=== PATIENT | male | born 1940 | race Caucasian/White ===

== ENCOUNTER 2017-07-07 22:23 | Inpatient (IN) | payer OTHER ==
--- NOTE | 2017-07-07 22:50 | DR.GENAD ---
HPI - PCP Primary Care Physician: HOMERO - Complaint/Symptoms Chief Complaint Doctors Comments: Patient presents with complaint of cough, congestion and chills for three days. He admits to a history of CAD and DM. Chief Complaint:: COUGHING; FEVER; CHILLS; SINUS DRAINAGE Self Treatment fo Chief Complaint: MUCINEX - Source History Provided: Patient - Mode of Arrival Mode of Arrival: Ambulatory - Timing Onset of Chief Complaint: 07/06/17 PMH - PMH Past Medical History: Yes Past Medical History: Angina, Diabetes, Hypertension, Seizures Past Surgical History: Yes Past Surgical History Comment: BACK SURGERY - Family History History of Family Medical Conditions: No - Social History Does patient currently use any type of tobacco product: No Have you used tobacco products in the last 12 months: No Type of Tobacco Use: None Does any household member use tobacco: No Alcohol Use: None Do you use any recreational Drugs:: No Lives With: Spouse Lives Where: Home - infectious screening In the last 2 months have you had wt loss of >10#?: NO Have you had fever, night sweats or hemotysis?: No Have you traveled outside the country in the last 6 months?: No Isolation: Standard ROS - Review of Systems Eyes: No Symptoms Reported ENTM: No Symptoms Reported Respiratoy: Dry Cough Cardiovascular: No Symptoms Reported Gastrointestinal/Abdominal: No Symptoms Reported Genitourinary: No Symptoms Reported Neurological: No Symptoms Reported Musculoskeletal: Muscle Pain Integumentary: No Symptoms Reported Hematologic/Lymphatic: No Symptoms Reported Endocrine: No Symptoms Reported Psychiatric: No Symptoms Reported All Other Systems: Reviewed and Negative PE - Vital Signs Vitals: Temperature 99.1 F Pulse Rate 102 Respiratory Rate 22 Blood Pressure 188/83 O2 Sat by Pulse Oximetry 98 - General Limitations: No Limitations General Appearance: Alert - Head Head Exam: Atraumatic - Eyes Eye exam: Normal Appearance, PERRL, EOMI - ENT ENT Exam: Normal Exam External Ear Exam: Normal External Inspection TM/Canal Exam: Bilateral Normal Nose Exam: Normal Nose Exam Mouth Exam: Normal Inspection Throat Exam: Normal Inspection - Neck Neck Exam: Normal Inspection, Full ROM - Chest Chest Inspection: Normal Inspection - Respiratory Respiratory Exam: Normal Lung Sounds Bilat Respiratory Exam: Bilateral Clear to Auscultation - Cardiovascular Cardiovascular Exam: Regular Rate - Abdominal Exam Abdominal Exam: Normal Inspection Abdominal Tenderness: negative: RUQ, RLQ, LUQ, LLQ, Epigastrium, Suprapubic, Diffuse, Mild, Moderate, Severe, Other - Extremities Extremities Exam: Normal Inspection - Back Back Exam: Normal Inspection - Neurologic Neurological Exam: Alert, Oriented X3, CN II-XII Intact - Psychiatric Psychiatric Exam: Normal Affect - Skin Skin Exam: Warm, Dry Course - Consultation Called: 01:15 (Dr Villa agreed to admit for further treatment) ROR - Labs Reviewed Result Diagrams: 07/07/17 23:20 07/07/17 23:20 Laboratory: WBC 3.5 X10^3/uL (3.6-10.0) L 07/07/17 23:20 RBC 2.98 X10^6/uL (4.7-6.0) L 07/07/17 23:20 Hgb 6.2 g/dL (13.5-18.0) L* 07/07/17 23:20 Hct 21.3 % (42.0-54.0) L 07/07/17 23:20 MCV 71.4 fL (80.0-100.0) L 07/07/17 23:20 MCH 20.9 pg (27.0-34.0) L 07/07/17 23:20 MCHC 29.3 g/dL (33.0-35.0) L 07/07/17 23:20 RDW 19.5 % (11.6-16.5) H 07/07/17 23:20 Plt Count 157 X10^3/uL (150.0-450.0) 07/07/17 23:20 Plt Count Comment Adequate (ADEQUATE) 07/07/17 23:20 MPV 8.9 fL (7.4-11.0) 07/07/17 23:20 Neut % 44.6 % (42.0-75.0) 07/07/17 23:20 Lymph % 31.9 % (21.0-51.0) 07/07/17 23:20 [place] % 19.6 % (0.0-13.0) H 07/07/17 23:20 Eos % 2.9 % (0.9-2.9) 07/07/17 23:20 Baso % 1.0 % (0.2-1.0) 07/07/17 23:20 Neut # 1.6 x10^3/uL (2.2-4.8) L 07/07/17 23:20 Lymph # 1.1 X10^3/uL (1.3-2.9) L 07/07/17 23:20 [place] # 0.7 x10^3/uL (0.3-0.8) 07/07/17 23:20 Eos # 0.1 x10^3/uL (0.0-0.2) 07/07/17 23:20 Baso # 0.0 X10^3/uL (0.0-0.1) 07/07/17 23:20 Absolute Nucleated RBC 0.1 /100WBC 07/07/17 23:20 Plt Morphology Comment Normal (NORMAL) 07/07/17 23:20 RBC Morphology Abnormal (NORMAL) 07/07/17 23:20 Hypochromasia 2+ A 07/07/17 23:20 Sodium 142 mmol/L (136-145) 07/07/17 23:20 Corrected Sodium 144 mmol/L (136-145) 07/07/17 23:20 Potassium 4.2 mmol/L (3.5-5.1) 07/07/17 23:20 Chloride 105 mmol/L (98-107) 07/07/17 23:20 Carbon Dioxide 24.9 mmol/L (21-32) 07/07/17 23:20 BUN 24 mg/dL (7-18) H 07/07/17 23:20 Creatinine 1.18 mg/dL (0.70-1.30) 07/07/17 23:20 Est GFR (MDRD) Af Amer > 60 (>60) 07/07/17 23:20 Est GFR (MDRD) Non-Af > 60 (>60) 07/07/17 23:20 Glucose 194 mg/dL (65-99) H 07/07/17 23:20 Calcium 8.6 mg/dL (8.5-10.1) 07/07/17 23:20 Corrected Calcium 9.3 mg/dL (8.5-10.1) 07/07/17 23:20 Total Bilirubin 0.40 mg/dL (0.2-1.0) 07/07/17 23:20 AST 70 Units/L (15-37) H 07/07/17 23:20 ALT 37 Units/L (12-78) 07/07/17 23:20 Alkaline Phosphatase 102 Units/L (46-116) 07/07/17 23:20 Total Protein 7.5 g/dL (6.4-8.2) 07/07/17 23:20 Albumin 3.1 g/dL (3.4-5.0) L 07/07/17 23:20 Globulin 4.4 g/dL (2.5-4.5) 07/07/17 23:20 Albumin/Globulin Ratio 0.7 Ratio (1.1-2.1) L 07/07/17 23:20 Influenza Type A (PCR) Negative (NEGATIVE) 07/07/17 23:13 Influenza Type B (PCR) Negative (NEGATIVE) 07/07/17 23:13 - XRAY XRAY Interpreted by: Radiologist (Chest: The heart size is normal. No focal consolidation, effusion or pneumothorax is identified. No acute osseous abnormality is seen.) - Diagnosis Discharge Problem: Anemia Qualifiers: Anemia type: unspecified type Qualified Code(s): D64.9 - Anemia, unspecified - Discharge Plan Condition: Stable - Follow ups/Referrals Follow ups/Referrals: Kalee VALENTIN [Primary Care Provider] - 3 days - Instructions
[2017-07-07 23:38] LABS: EOSINOPHILS # (AUTO) 0.1 x10^3/uL (0.0-0.2); HEMATOCRIT 21.3 % (42.0-54.0); LYMPHOCYTES # (AUTO) 1.1 X10^3/uL (1.3-2.9); MEAN CORPUSCULAR HGB CONC 29.3 g/dL (33.0-35.0); MONOCYTES # (AUTO) 0.7 x10^3/uL (0.3-0.8)
[2017-07-07 23:47] LABS: ALANINE AMINOTRANSFERASE 37 Units/L (12-78); ALBUMIN 3.1 g/dL (3.4-5.0); ALKALINE PHOSPHATASE 102 Units/L (46-116); ASPARTATE AMINO TRANSFERASE 70 Units/L (15-37); BLOOD UREA NITROGEN 24 mg/dL (7-18); CALCIUM 8.6 mg/dL (8.5-10.1); CARBON DIOXIDE 24.9 mmol/L (21-32); CHLORIDE 105 mmol/L (98-107); COR CA(FOR HYPOALB) 9.3 mg/dL (8.5-10.1); COR NA(FOR HYPERGLY) 144 mmol/L (136-145); CREATININE 1.18 mg/dL (0.70-1.30); SODIUM 142 mmol/L (136-145); TOTAL PROTEIN 7.5 g/dL (6.4-8.2); eGFR BLACK RACES > 60 (>60); eGFR NON BLACK RACES > 60 (>60)
[2017-07-07 23:51] LABS: EOSINOPHILS % (AUTO) 2.9 % (0.9-2.9); LYMPHOCYTES % (AUTO) 31.9 % (21.0-51.0); MEAN CORPUSCULAR HEMOGLOBIN 20.9 pg (27.0-34.0); MEAN CORPUSCULAR VOLUME 71.4 fL (80.0-100.0); MEAN PLATELET VOLUME 8.9 fL (7.4-11.0); MONOCYTES % (AUTO) 19.6 % (0.0-13.0); NEUTROPHILS # (AUTO) 1.6 x10^3/uL (2.2-4.8); NEUTROPHILS % (AUTO) 44.6 % (42.0-75.0); PLATELET COUNT 157 X10^3/uL (150.0-450.0); RED BLOOD COUNT 2.98 X10^6/uL (4.7-6.0); RED CELL DISTRIBUTION WIDTH 19.5 % (11.6-16.5); WHITE BLOOD COUNT 3.5 X10^3/uL (3.6-10.0)
[2017-07-07 23:53] LABS: HEMOGLOBIN 6.2 g/dL (13.5-18.0)
[2017-07-08 00:03] LABS: HYPOCHROMASIA 2+; PLATELET MORPHOLOGY COMMENT NORMAL (NORMAL)
--- NOTE | 2017-07-08 01:23 | RAD ---
Chest, one-view Indication: Cough, fever, chills Comparison: 05/19/2014 Findings: The heart size is normal. No focal consolidation, effusion or pneumothorax is identified. N o acute osseous abnormality is seen. Impression: No acute chest process. Reported By:
[2017-07-08] MEDS ORDERED: NS 500 ML IV 500 ML IV ONE (02:09)
[2017-07-08 05:02] VITALS: BMI 34.7
[2017-07-08] MEDS ORDERED: ASTELIN NASAL SPRAY ENOSTRIL ONE (16:13)
[2017-07-08] MEDS: FLONASE NASAL SPRAY ENOSTRIL SCH (16:59)
[2017-07-08] MEDS ORDERED: ASPIRIN PO SCH (17:00)
[2017-07-08] MEDS: AUGMENTIN 500 MG/125 MG TAB PO SCH ×2 (17:00→20:49)
[2017-07-08] MEDS: ASTELIN NASAL SPRAY ENOSTRIL SCH ×2 (17:00→20:45)
[2017-07-08] MEDS ORDERED: ASPIRIN EC 81 MG PO ONE (17:05)
[2017-07-08] MEDS ORDERED: GLUCOPHAGE ONE (17:05)
[2017-07-08] MEDS: GLUCOPHAGE PO SCH (17:06)
[2017-07-08] MEDS: GLUCOTROL PO SCH (17:06)
[2017-07-08] MEDS: ZESTRIL TAB 5 MG PO SCH (17:06)
[2017-07-08] MEDS: ASPIRIN EC 81 MG PO SCH (18:22)
[2017-07-08] MEDS: SNACK - Diabetic Appropriate PO SCH (20:43)
[2017-07-08] MEDS: NEURONTIN CAP 300 MG PO SCH (20:48)
[2017-07-08] MEDS: DILANTIN CAP 100 MG EXT REL PO SCH (20:48)
[2017-07-08] MEDS: PHENOBARBITAL TAB 30 MG (32.4MG) PO SCH (20:49)
[2017-07-09] MEDS: DILANTIN CAP 100 MG EXT REL PO SCH ×5 (01:35→22:24)
[2017-07-09] MEDS: PHENOBARBITAL TAB 30 MG (32.4MG) PO SCH ×4 (01:36→22:24)
[2017-07-09] MEDS ORDERED: GLUCOPHAGE ONE ×2 (05:04→17:35)
[2017-07-09] MEDS: AUGMENTIN 500 MG/125 MG TAB PO SCH ×3 (05:21→20:53)
[2017-07-09 05:52] LABS: BASOPHILS % (AUTO) 1.6 % (0.2-1.0); EOSINOPHILS # (AUTO) 0.1 x10^3/uL (0.0-0.2); EOSINOPHILS % (AUTO) 2.7 % (0.9-2.9); LYMPHOCYTES # (AUTO) 0.7 X10^3/uL (1.3-2.9); LYMPHOCYTES % (AUTO) 24.7 % (21.0-51.0); MEAN CORPUSCULAR HEMOGLOBIN 21.8 pg (27.0-34.0); MEAN CORPUSCULAR HGB CONC 29.9 g/dL (33.0-35.0); MEAN PLATELET VOLUME 9.2 fL (7.4-11.0); MONOCYTES # (AUTO) 0.5 x10^3/uL (0.3-0.8); MONOCYTES % (AUTO) 17.2 % (0.0-13.0); NEUTROPHILS # (AUTO) 1.5 x10^3/uL (2.2-4.8); NEUTROPHILS % (AUTO) 53.8 % (42.0-75.0); PLATELET COUNT 122 X10^3/uL (150.0-450.0); RED BLOOD COUNT 2.75 X10^6/uL (4.7-6.0); WHITE BLOOD COUNT 2.8 X10^3/uL (3.6-10.0)
[2017-07-09 05:57] LABS: ALANINE AMINOTRANSFERASE 27 Units/L (12-78); ALBUMIN 2.8 g/dL (3.4-5.0); ALKALINE PHOSPHATASE 86 Units/L (46-116); ASPARTATE AMINO TRANSFERASE 40 Units/L (15-37); BLOOD UREA NITROGEN 18 mg/dL (7-18); CALCIUM 8.7 mg/dL (8.5-10.1); CHLORIDE 107 mmol/L (98-107); COR CA(FOR HYPOALB) 9.7 mg/dL (8.5-10.1); COR NA(FOR HYPERGLY) 142 mmol/L (136-145); CREATININE 0.86 mg/dL (0.70-1.30); SODIUM 141 mmol/L (136-145); TOTAL PROTEIN 6.9 g/dL (6.4-8.2); eGFR BLACK RACES > 60 (>60); eGFR NON BLACK RACES > 60 (>60)
[2017-07-09] MEDS: GLUCOTROL PO SCH ×2 (06:04→17:48)
[2017-07-09] MEDS: GLUCOPHAGE PO SCH ×2 (06:04→17:48)
[2017-07-09 06:41] LABS: PLATELET MORPHOLOGY COMMENT NORMAL (NORMAL)
[2017-07-09 06:42] LABS: HYPOCHROMASIA 2+; MICROCYTOSIS 2+
[2017-07-09] MEDS: ASTELIN NASAL SPRAY ENOSTRIL SCH ×2 (08:34→20:55)
[2017-07-09] MEDS: FLONASE NASAL SPRAY ENOSTRIL SCH (08:34)
[2017-07-09] MEDS: ZESTRIL TAB 5 MG PO SCH (08:34)
[2017-07-09] MEDS: ASPIRIN EC 81 MG PO SCH (08:34)
[2017-07-09] MEDS ORDERED: ZESTRIL TAB 5 MG PO SCH ×2 (09:12→12:15)
[2017-07-09] MEDS ORDERED: DEXFERRUM or INFED 25 MG in NS 100 ML IV 100 ML IV ONE (10:00)
[2017-07-09] MEDS ORDERED: PHARMACY CONSULT - DOSE _____ XX SCH (10:00)
[2017-07-09] MEDS ORDERED: NS 500 ML IV 500 ML IV ONE ×2 (10:16→21:51)
[2017-07-09] MEDS ORDERED: DEXFERRUM or INFED 1,000 MG in NS 500 ML IV 500 ML IV ONE (11:00)
[2017-07-09] MEDS ORDERED: ZESTRIL TAB 10 MG PO ONE (13:00)
[2017-07-09] MEDS ORDERED: LASIX ONE (17:28)
[2017-07-09] MEDS ORDERED: LASIX IVP ONE (17:30)
[2017-07-09] MEDS: SNACK - Diabetic Appropriate PO SCH (20:07)
[2017-07-09] MEDS: NEURONTIN CAP 300 MG PO SCH (20:52)
[2017-07-10 05:16] LABS: BASOPHILS % (AUTO) 0.9 % (0.2-1.0); EOSINOPHILS # (AUTO) 0.1 x10^3/uL (0.0-0.2); HEMATOCRIT 26.9 % (42.0-54.0); HEMOGLOBIN 8.5 g/dL (13.5-18.0); LYMPHOCYTES # (AUTO) 1.1 X10^3/uL (1.3-2.9); LYMPHOCYTES % (AUTO) 26.1 % (21.0-51.0); MEAN CORPUSCULAR HGB CONC 31.5 g/dL (33.0-35.0); MEAN CORPUSCULAR VOLUME 76.2 fL (80.0-100.0); MEAN PLATELET VOLUME 9.3 fL (7.4-11.0); MONOCYTES # (AUTO) 0.6 x10^3/uL (0.3-0.8); MONOCYTES % (AUTO) 13.9 % (0.0-13.0); NEUTROPHILS # (AUTO) 2.5 x10^3/uL (2.2-4.8); NEUTROPHILS % (AUTO) 57.1 % (42.0-75.0); PLATELET COUNT 128 X10^3/uL (150.0-450.0); RED BLOOD COUNT 3.53 X10^6/uL (4.7-6.0); RED CELL DISTRIBUTION WIDTH 21.1 % (11.6-16.5); WHITE BLOOD COUNT 4.4 X10^3/uL (3.6-10.0)
[2017-07-10] MEDS ORDERED: GLUCOPHAGE ONE (05:20)
[2017-07-10 05:29] LABS: ALKALINE PHOSPHATASE 94 Units/L (46-116); BLOOD UREA NITROGEN 16 mg/dL (7-18); CALCIUM 8.7 mg/dL (8.5-10.1); CARBON DIOXIDE 25.5 mmol/L (21-32); CHLORIDE 107 mmol/L (98-107); COR CA(FOR HYPOALB) 9.5 mg/dL (8.5-10.1); COR NA(FOR HYPERGLY) 142 mmol/L (136-145); CREATININE 0.78 mg/dL (0.70-1.30); SODIUM 141 mmol/L (136-145); TOTAL PROTEIN 7.4 g/dL (6.4-8.2); eGFR BLACK RACES > 60 (>60); eGFR NON BLACK RACES > 60 (>60)
[2017-07-10] MEDS: AUGMENTIN 500 MG/125 MG TAB PO SCH (05:35)
[2017-07-10] MEDS: DILANTIN CAP 100 MG EXT REL PO SCH (05:35)
[2017-07-10 05:38] LABS: PLATELET MORPHOLOGY COMMENT NORMAL (NORMAL)
[2017-07-10 05:39] LABS: ANISOCYTOSIS 1+; HYPOCHROMASIA 2+; MICROCYTOSIS 2+
[2017-07-10] MEDS: PHENOBARBITAL TAB 30 MG (32.4MG) PO SCH (05:49)
[2017-07-10 05:56] LABS: ALANINE AMINOTRANSFERASE 23 Units/L (12-78); ASPARTATE AMINO TRANSFERASE 38 Units/L (15-37)
[2017-07-10] MEDS: GLUCOTROL PO SCH (06:01)
[2017-07-10] MEDS: GLUCOPHAGE PO SCH (06:01)
[2017-07-10] MEDS: ASPIRIN EC 81 MG PO SCH (08:32)
[2017-07-10] MEDS: ASTELIN NASAL SPRAY ENOSTRIL SCH (08:34)
[2017-07-10] MEDS: FLONASE NASAL SPRAY ENOSTRIL SCH (08:35)
[2017-07-10 09:57] VITALS: BP 181/74
== END 2017-07-10 11:40 | disposition home or self-care (01) | DRG 812 ==
LOC: ER 22:43 → MED/SURG 07-08 02:07
PROVIDERS: ADMIT Obstetrics & Gynecology Obstetrics; ATTEND Internal Medicine
PROC: 30233N1 Transfusion of Nonautologous Red Blood Cells into Peripheral Vein, Percutaneous Approach (ICD-10-PCS; principal; 2017-07-09)
PROC: 30233N1 Transfusion of Nonautologous Red Blood Cells into Peripheral Vein, Percutaneous Approach (ICD-10-PCS; 2017-07-09)
DX: D64.89 Other specified anemias (principal); J32.8 Other chronic sinusitis; E11.65 Type 2 diabetes mellitus with hyperglycemia; I10 Essential (primary) hypertension; G40.802 Other epilepsy, not intractable, without status epilepticus; D50.0 Iron deficiency anemia secondary to blood loss (chronic)
CPT/HCPCS: 36415; 36430; 71010; 80053; 82270; 82607; 82670; 82728; 82746; 83540; 84403; 84466; 85025; 86850; 86900; 86901; 86922; 87502; 96365; 99284; A4222; P9016; J1940

== ENCOUNTER 2019-08-20 10:31 | Inpatient (IN) ==
[2019-08-20] MEDS ORDERED: NS 1000 ML 1,000 ML IV ONE (11:08)
[2019-08-20] MEDS ORDERED: THORAZINE INJ 25 MG AMP IM ONE (11:08)
--- NOTE | 2019-08-20 11:11 | DR.GENAD ---
HPI Time Seen Time Seen by Provider: 08/20/19 11:02 PCP Primary Care Physician: FAVIO ESTES HPI Comment HPI Comment: PATIENT IS 79YR OLD MALE IN EMERGENCY ROOM WITH HIS STATING PATIENT HAVE FEVER, ANOREXIA AND GENERALIZED WEAKNESS FOR 4DAYS. PATIENT HAD DBURNING PAIN.IARRHES PAST 4 WEEKS AND IS ON ANTIBIOTICS. DIARRHEA HAS RESOLVED. NO DYSURIA. PATIENT IS HAVING HICCUPS. PATIENT HAVE 4/10 PAIN IN THE THROAT. Complaint/Symptoms Chief Complaint Doctors Comments: GENERALIZED WEAKNESS, POOR APPETITE AND FEVER TIMES 4DAYS. Chief Complaint:: STATES PT. HAS BEEN HAVING A FEVER, WEAKNESS AND DECREASED APPETITE SINCE MONDAY. SHE BELIEVES PT. IS DEHYDRATED. PT. HAS BEEN TO PCP TWICE IN THE PAST 4 WEEKS DUE TO DIARRHEA WHICH HAS NOW SUBSIDED. PT. IS CURRENTLY ON ANTIBIOTICS. Nurses notes reviewed Nurses Notes Review: Yes Source History Provided: Patient Mode of Arrival Mode of Arrival: Ambulatory Timing Onset of Chief Complaint: 08/16/19 Came on: Suddenly Duration Duration: Constant Duration: Days Severity Severity: Moderate Modifying Factors Worsens:: EXERTION. Improves:: REST. Associated Signs and Symptoms Associated Signs and Symptoms: RESOLVED DIARRHEA. Other History Other History: HISTORY HTN AND DM. PMH PMH Past Medical History: Yes Past Medical History: Angina, Diabetes, Hypertension and Seizures Past Surgical History: Yes Surgical History: Ortho Surgery Family History History of Family Medical Conditions: Yes Family Medical History: Cancer Social History Does patient currently use any type of tobacco product: No Have you used tobacco products in the last 12 months: No Type of Tobacco Use: None Does any household member use tobacco: No Alcohol Use: None Do you use any recreational Drugs:: No Lives With: Spouse Lives Where: Home infectious screening In the last 2 months have you had wt loss of >10#?: NO Have you had fever, night sweats or hemotysis?: No Have you traveled outside the country in the last 6 months?: No Isolation: Standard ROS Review of Systems Constitutional: See HPI, Fever, Weakness and Fatigue Eyes: No Symptoms Reported and See HPI ENTM: No Symptoms Reported and See HPI Respiratoy: See HPI and Other Cardiovascular: No Symptoms Reported and See HPI Gastrointestinal/Abdominal: Diarrhea and Other (RESOLVED, ON ANTIBIOTIC.) Genitourinary: No Symptoms Reported and See HPI; negative Dysuria, Frequency and Hematuria Neurological: See HPI and Weakness Musculoskeletal: See HPI and Muscle Pain Integumentary: See HPI and Dryness Hematologic/Lymphatic: No Symptoms Reported and See HPI; negative Easy Bruising and Swollen Glands Endocrine: See HPI, Increased Thirst and Decreased Appetite; negative Increased Urine Psychiatric: No Symptoms Reported and See HPI All Other Systems: Reviewed and Negative PE Vital Signs Vitals: Temperature 98.7 F Pulse Rate [Left Brachial] 96 Pulse Rate 90 Respiratory Rate 18 Blood Pressure [Left Arm] 167/71 Blood Pressure 176/80 O2 Sat by Pulse Oximetry 95 General Limitations: No Limitations General Appearance: Alert and In No Apparent Distress Head Head Exam: Normal Inspection and Atraumatic Eyes Eye exam: Normal Appearance and PERRL; negative Scleral Icterus and Conjunctival Injection ENT ENT Exam: Normal Exam, Normal Oropharynx, Normal External Ear Exam and TM's Normal Bilaterally External Ear Exam: Normal External Inspection; negative Mastoid Tenderness TM/Canal Exam: Bilateral: Normal Nose Exam: Normal Nose Exam Mouth Exam: Normal Inspection Throat Exam: Tonsillar Erythema; negative Tonsillomegaly and Tonsillar Exudate Neck Neck Exam: Normal Inspection and Trachea Midline; negative Tenderness and Lymph adenopathy Chest Chest Inspection: Normal Inspection and Symmetric Chest Wall Rise; negative Tenderness Respiratory Respiratory Exam: Normal Lung Sounds Bilat; negative Accessory Muscle Use, Chest Wall Tenderness and Respiratory Distress Respiratory Exam: Bilateral: Clear to Auscultation Cardiovascular Cardiovascular Exam: Regular Rate, Normal Rhythm and Normal Heart Sounds; negative Systolic Murmur and Diastolic Murmur Abdominal Exam Abdominal Exam: Normal Inspection, Normal Bowel Sounds and Soft; negative Tenderness Extremities Extremities Exam: Normal Inspection and Normal Capillary Refill; negative Tenderness, Edema and Calf Tenderness Back Back Exam: Normal Inspection; negative Tenderness, (R) CVA Tenderness, (L) CVA Tenderness, Paraspinal Tenderness and Vertebral Tenderness Neurologic Neurological Exam: Alert, Oriented X3 and CN II-XII Intact; negative Motor Sensory Deficit Psychiatric Psychiatric Exam: Normal Affect and Normal Mood Skin Skin Exam: Dry MDM Additional Information Additional Information Obtained From: Family Differential Diagnosis Differential Diagnosis: DEHYDRATION, GENERALIZED WEAKNESS, PNEUMONIA, BRONCHITIS, DIARRHEAM, HICCUP COURSE Treatment Treatment: SEE ORDERS. NS 1L IV. Consultation Consultation Comments: PATIENT DISCUSSED WITH DR. OLMSTEAD AND HE WILL ADMIT PATIENT. Education/Counseling Education/Counseling: Patient and Family Educated On: Diagnosis ROR Labs Reviewed Laboratory Results Reviewed?: Yes Result Diagrams: 08/28/19 06:45 08/28/19 06:45 Laboratory: 08/20/19 11:45 Blood Blood Culture - Final 08/20/19 11:25 Blood Blood Culture - Final WBC 6.6 X10^3/uL (3.6-10.0) 08/20/19 11:45 RBC 4.02 X10^6/uL (4.7-6.0) L 08/20/19 11:45 Hgb 13.1 g/dL (13.5-18.0) L 08/20/19 11:45 Hct 38.7 % (42.0-54.0) L 08/20/19 11:45 MCV 96.2 fL (80.0-100.0) 08/20/19 11:45 MCH 32.6 pg (27.0-34.0) 08/20/19 11:45 MCHC 33.9 g/dL (33.0-35.0) 08/20/19 11:45 RDW 12.7 % (11.6-16.5) 08/20/19 11:45 Plt Count 128 X10^3/uL (150.0-450.0) L 08/20/19 11:45 MPV 9.5 fL (7.4-11.0) 08/20/19 11:45 Neut % (Auto) 79.1 % (42.0-75.0) H 08/20/19 11:45 Lymph % (Auto) 11.3 % (21.0-51.0) L 08/20/19 11:45 [place] % (Auto) 8.9 % (0.0-13.0) 08/20/19 11:45 Eos % (Auto) 0.1 % (0.9-2.9) L 08/20/19 11:45 Baso % (Auto) 0.6 % (0.2-1.0) 08/20/19 11:45 Neut # (Auto) 5.2 x10^3/uL (2.2-4.8) H 08/20/19 11:45 Lymph # (Auto) 0.7 X10^3/uL (1.3-2.9) L 08/20/19 11:45 [place] # (Auto) 0.6 x10^3/uL (0.3-0.8) 08/20/19 11:45 Eos # (Auto) 0.0 x10^3/uL (0.0-0.2) 08/20/19 11:45 Baso # (Auto) 0.0 X10^3/uL (0.0-0.1) 08/20/19 11:45 Absolute Nucleated RBC 0.0 /100WBC 08/20/19 11:45 Sodium 131 mmol/L (136-145) L 08/20/19 11:45 Corrected Sodium 137 mmol/L (136-145) 08/20/19 11:45 Potassium 4.5 mmol/L (3.5-5.1) 08/20/19 11:45 Chloride 94 mmol/L (98-107) L 08/20/19 11:45 Carbon Dioxide 26.0 mmol/L (21-32) 08/20/19 11:45 BUN 30 mg/dL (7-18) H 08/20/19 11:45 Creatinine 1.71 mg/dL (0.70-1.30) H 08/20/19 11:45 Est GFR (MDRD) Af Amer 50 (>60) L 08/20/19 11:45 Est GFR (MDRD) Non-Af 41 (>60) L 08/20/19 11:45 Glucose 347 mg/dL (65-99) H 08/20/19 11:45 Lactic Acid 4.2 mmol/L (0.4-2.0) H 08/20/19 11:45 Calcium 8.1 mg/dL (8.5-10.1) L 08/20/19 11:45 Corrected Calcium 8.7 mg/dL (8.5-10.1) 08/20/19 11:45 Total Bilirubin 0.60 mg/dL (0.2-1.0) 08/20/19 11:45 AST 41 Units/L (15-37) H 08/20/19 11:45 ALT 38 Units/L (12-78) 08/20/19 11:45 Alkaline Phosphatase 110 Units/L (46-116) 08/20/19 11:45 Total Protein 8.1 g/dL (6.4-8.2) 08/20/19 11:45 Albumin 3.2 g/dL (3.4-5.0) L 08/20/19 11:45 Globulin 4.9 g/dL (2.5-4.5) H 08/20/19 11:45 Albumin/Globulin Ratio 0.7 Ratio (1.1-2.1) L 08/20/19 11:45 Specimen Type Random urine 08/20/19 12:34 Urine Color Yellow (YELLOW) 08/20/19 12:34 Urine Appearance Hazy (CLEAR) 08/20/19 12:34 Urine pH 5.0 (5.0 - 8.0) 08/20/19 12:34 Ur Specific [place] 1.010 (1.000-1.030) 08/20/19 12:34 Urine Protein 2+ (NEGATIVE) 08/20/19 12:34 Urine Glucose (UA) 4+ (NEGATIVE) 08/20/19 12:34 Urine Ketones Negative (NEGATIVE) 08/20/19 12:34 Urine Occult Blood 3+ (NEGATIVE) 08/20/19 12:34 Urine Nitrite Negative (NEGATIVE) 08/20/19 12:34 Urine Bilirubin Negative (NEGATIVE) 08/20/19 12:34 Urine Urobilinogen 1+ (NORMAL) 08/20/19 12:34 Ur Leukocyte Esterase Negative (NEGATIVE) 08/20/19 12:34 Urine RBC 0-2 /HPF (0-3) 08/20/19 12:34 Urine WBC None seen /HPF (0-5) 08/20/19 12:34 Ur Squamous Epith Cells Negative /HPF (NEGATIVE) 08/20/19 12:34 Urine Bacteria Negative /HPF (NEGATIVE) 08/20/19 12:34 Urine Mucus Few /HPF (NEGATIVE) 08/20/19 12:34 Ur Culture Indicated? No/not indicated 08/20/19 12:34 Acetone, Semi-Quant Negative (NEGATIVE) 08/20/19 11:45 Influenza Type A (PCR) Negative (NEGATIVE) 08/20/19 10:52 Influenza Type B (PCR) Negative (NEGATIVE) 08/20/19 10:52 S. pyogenes (TEM-PCR) Not detected (NOT DETECT) 08/20/19 10:52 XRAY XRAY Interpreted by: Radiologist XRAY Findings: REPORT NOTED AND DISCUSSED WITH PATIENT. Opioid Opioid Risk Tool Age (Juan Alberto box if 16-45): No History of Preadolescent Sexual Abuse: No Total: 0 Total Score Risk Category: Low Risk Copyright: Spencer DISLA predicting aberrant behaviors Diagnosis Discharge Problem: Acute dehydration, Hyperglycemia, Acidosis Right lower lobe pneumonia Qualifiers: Pneumonia type: due to unspecified organism Qualified Code(s): J18.9 - Pneumonia, unspecified organism Instructions Instructions: Type 2 Diabetes Mellitus, Diagnosis, Adult Benign Prostatic Hypertrophy Indwelling Urinary Catheter Care, Adult Apixaban oral tablets Atrial Fibrillation, [id number] Community-Acquired Pneumonia, Adult, [id number] Forms: Excuse From Work or School Patient Portal
[2019-08-20] MEDS ORDERED: NS 1000 ML 1,000 ML ONE ×2 (11:14→15:26)
[2019-08-20] MEDS ORDERED: THORAZINE INJ 25 MG AMP ONE (11:14)
--- NOTE | 2019-08-20 11:31 | RAD ---
HISTORYFever and weakness.STUDYCHEST, 1 VIEWCOMPARISONNone.FINDINGSThe trachea is midline. The cardiac silhouette is unremarkable. There is a hazy airspace opacity in the right lower lobe, new since the prior study. There is no evidence of consolidation, significant effusion or pneumothorax. The bony thorax is unremarkable.IMPRESSIONIll-defined infiltrate in the right lower lobe. Clinical correlation for right lower lobe pneumonia is recommended.Electronically signed by: MARGI PLUNKETT (Aug 20, 2019 11:29:54)
[2019-08-20 11:34] LABS: STREP A BY PCR NOT DETECTED (NOT DETECT)
[2019-08-20 11:56] LABS: BASOPHILS % (AUTO) 0.6 % (0.2-1.0); EOSINOPHILS % (AUTO) 0.1 % (0.9-2.9); HEMATOCRIT 38.7 % (42.0-54.0); HEMOGLOBIN 13.1 g/dL (13.5-18.0); LYMPHOCYTES # (AUTO) 0.7 X10^3/uL (1.3-2.9); LYMPHOCYTES % (AUTO) 11.3 % (21.0-51.0); MEAN CORPUSCULAR HEMOGLOBIN 32.6 pg (27.0-34.0); MEAN CORPUSCULAR HGB CONC 33.9 g/dL (33.0-35.0); MEAN CORPUSCULAR VOLUME 96.2 fL (80.0-100.0); MEAN PLATELET VOLUME 9.5 fL (7.4-11.0); MONOCYTES # (AUTO) 0.6 x10^3/uL (0.3-0.8); MONOCYTES % (AUTO) 8.9 % (0.0-13.0); NEUTROPHILS # (AUTO) 5.2 x10^3/uL (2.2-4.8); NEUTROPHILS % (AUTO) 79.1 % (42.0-75.0); PLATELET COUNT 128 X10^3/uL (150.0-450.0); RED BLOOD COUNT 4.02 X10^6/uL (4.7-6.0); RED CELL DISTRIBUTION WIDTH 12.7 % (11.6-16.5); WHITE BLOOD COUNT 6.6 X10^3/uL (3.6-10.0)
[2019-08-20 12:05] LABS: ALBUMIN 3.2 g/dL (3.4-5.0); CALCIUM 8.1 mg/dL (8.5-10.1); COR CA(FOR HYPOALB) 8.7 mg/dL (8.5-10.1); CREATININE 1.71 mg/dL (0.70-1.30); TOTAL PROTEIN 8.1 g/dL (6.4-8.2)
[2019-08-20 12:08] LABS: LACTIC ACID 4.2 mmol/L (0.4-2.0)
[2019-08-20] MEDS ORDERED: ROCEPHIN VIAL 1 GRAM 1 G in NS 100 ML IV + SPIKE MINIBAG* 100 ML IV ONE (12:08)
[2019-08-20] MEDS ORDERED: NS 100 ML IV 100 ML IV ONE (12:34)
[2019-08-20] MEDS ORDERED: ROCEPHIN VIAL 1 GRAM ONE (12:35)
[2019-08-20 12:43] LABS: BILIRUBIN,URINE NEGATIVE (NEGATIVE); BLOOD/HEMOGLOBIN,URINE 3+ (NEGATIVE); GLUCOSE, URINE 4+ (NEGATIVE); KETONES,URINE NEGATIVE (NEGATIVE); LEUKOCYTE ESTERASE ,URINE NEGATIVE (NEGATIVE); NITRITES,URINE NEGATIVE (NEGATIVE); PROTEIN,URINE 2+ (NEGATIVE); UROBILINOGEN,URINE 1+ (NORMAL)
[2019-08-20 12:45] LABS: APPEARANCE,URINE HAZY (CLEAR); COLOR,URINE YELLOW (YELLOW)
[2019-08-20 12:47] LABS: BACTERIA,URINE NEGATIVE /HPF (NEGATIVE); MUCUS,URINE FEW /HPF (NEGATIVE); RBC,URINE 0-2 /HPF (0-3); SQUAMOUS EPITHELIAL CELL,UR NEGATIVE /HPF (NEGATIVE)
[2019-08-20] MEDS ORDERED: TUSSIONEX PENNKINETIC SUSP PO PRN (15:11)
[2019-08-20] MEDS ORDERED: ROCEPHIN VIAL 1 GRAM 1 G in NS 100 ML IV + SPIKE MINIBAG* 100 ML IV SCH (15:30)
[2019-08-20 15:45] VITALS: BMI 33.2
[2019-08-20] MEDS ORDERED: SALINE 3% 15 ML NEB TX NEB ONE (16:00)
[2019-08-20] MEDS: ZITHROMAX INJ 500 MG VIAL 500 MG in NS 250 ML IV 250 ML IV SCH (16:04)
--- NOTE | 2019-08-20 16:07 | CT ---
ABDOMEN/PELVIS W/O CONIndication: Abdominal pain, diarrheaTechnique: Helical CT images of the abdomen and pelvis were obtained without IV contrast. Reformatted images in the coronal and sagittal planes were also generated for review.Comparison: NoneFindings: Limited images of the lower chest demonstrate a trace right pleural effusion and patchy airspace disease within the right lower lobe. Visualized left lung base is clear. No acute osseous abnormality.Within limits of a noncontrast as well as motion limited exam, the unenhanced liver, spleen, pancreas, adrenals and kidneys are unremarkable. No urolithiasis or obstructive uropathy. The nondistended gallbladder is normal.There is mild colonic diverticulosis without diverticulitis. There is no bowel obstruction or gross inflammation. The visualized appendix is normal. The abdominal aorta is calcified without aneurysm. The collapsed urinary bladder is grossly normal. The prostate is enlarged. No free air, free fluid or bulky lymphadenopathy.Impression:1. No acute abdominal pelvic abnormality identified within the limitations of a motion limited exam performed without intravenous or oral contrast.2. Right lower lobe pneumonia with trace right parapneumonic effusion3. Distal colonic diverticulosis without diverticulitis and additional findings as above.Electronically signed by: MIGDALIA TREJO (Aug 20, 2019 16:06:07)
[2019-08-20] MEDS ORDERED: TYLENOL 325 MG TAB PO ONE (16:09)
[2019-08-20] MEDS: TYLENOL 325 MG TAB PO PRN ×2 (16:17→22:04)
[2019-08-20] MEDS: NS 1000 ML 1,000 ML IV SCH (16:19)
[2019-08-20] MEDS ORDERED: TYLENOL 500 MG TAB EXTRA STRENGTH PO ONE ×2 (17:17→17:19)
[2019-08-20 17:28] LABS: ABG BASE EXCESS 4.2 mmol/L (-2.0-2.0); ABG HCO3 28.4 mmol/L (22-26)
[2019-08-20 17:29] LABS: ABG ALLEN TEST POS
[2019-08-20] MEDS: DUONEB 0.5 MG/3 MG (3 mL) NEB SCH (17:29)
[2019-08-20 17:33] LABS: BILIRUBIN,URINE NEGATIVE (NEGATIVE); BLOOD/HEMOGLOBIN,URINE 4+ (NEGATIVE); GLUCOSE, URINE 1+ (NEGATIVE); KETONES,URINE NEGATIVE (NEGATIVE); LEUKOCYTE ESTERASE ,URINE NEGATIVE (NEGATIVE); NITRITES,URINE NEGATIVE (NEGATIVE); PROTEIN,URINE 3+ (NEGATIVE); UROBILINOGEN,URINE 1+ (NORMAL)
[2019-08-20 17:41] LABS: APPEARANCE,URINE SLIGHTLY HAZY (CLEAR); BACTERIA,URINE TRACE /HPF (NEGATIVE); COLOR,URINE YELLOW (YELLOW); MUCUS,URINE FEW /HPF (NEGATIVE); RBC,URINE 0-2 /HPF (0-3); SQUAMOUS EPITHELIAL CELL,UR RARE /HPF (NEGATIVE)
[2019-08-20] MEDS: PHENOBARBITAL TAB 30 MG (32.4MG) PO SCH ×2 (18:27→21:34)
[2019-08-20] MEDS: DILANTIN CAP 100 MG EXT REL PO SCH ×2 (18:27→21:35)
[2019-08-20] MEDS: ROBITUSSIN DM PO SCH ×2 (18:27→21:35)
[2019-08-20] MEDS ORDERED: LEVAQUIN TAB 500 MG PO ONE (19:00)
[2019-08-20] MEDS: SNACK - Diabetic Appropriate PO SCH (20:00)
[2019-08-20] MEDS ORDERED: GLUCOPHAGE ONE (20:14)
[2019-08-20] MEDS: NEURONTIN CAP 300 MG PO SCH (21:34)
[2019-08-20] MEDS: FLAGYL TAB 500 MG PO SCH (21:35)
[2019-08-20] MEDS: GLUCOTROL PO SCH (21:35)
[2019-08-20] MEDS: GLUCOPHAGE PO SCH (21:41)
[2019-08-21] MEDS: DUONEB 0.5 MG/3 MG (3 mL) NEB SCH ×4 (00:30→16:54)
[2019-08-21 05:38] LABS: ALBUMIN 2.4 g/dL (3.4-5.0); CALCIUM 7.6 mg/dL (8.5-10.1); CARBON DIOXIDE 25.6 mmol/L (21-32); COR CA(FOR HYPOALB) 8.9 mg/dL (8.5-10.1); CREATININE 1.48 mg/dL (0.70-1.30); TOTAL PROTEIN 6.4 g/dL (6.4-8.2)
[2019-08-21] MEDS: NS 1000 ML 1,000 ML IV SCH (05:50)
[2019-08-21] MEDS: DILANTIN CAP 100 MG EXT REL PO SCH ×3 (06:19→21:36)
[2019-08-21] MEDS: PHENOBARBITAL TAB 30 MG (32.4MG) PO SCH ×3 (06:19→21:36)
[2019-08-21] MEDS ORDERED: GLUCOPHAGE ONE (07:36)
[2019-08-21] MEDS: GLUCOTROL PO SCH ×2 (08:04→21:37)
[2019-08-21] MEDS: GLUCOPHAGE PO SCH (08:04)
[2019-08-21] MEDS: TYLENOL 325 MG TAB PO PRN ×2 (08:04→20:10)
[2019-08-21] MEDS: NEURONTIN CAP 300 MG PO SCH ×2 (08:05→21:37)
[2019-08-21] MEDS: ZITHROMAX INJ 500 MG VIAL 500 MG in NS 250 ML IV 250 ML IV SCH (08:05)
[2019-08-21] MEDS: ROBITUSSIN DM PO SCH ×4 (08:05→21:36)
[2019-08-21] MEDS: ZESTRIL TAB 5 MG PO SCH (08:05)
[2019-08-21] MEDS: ROCEPHIN VIAL 1 GRAM 1 G in NS 100 ML IV + SPIKE MINIBAG* 100 ML IV SCH (08:05)
[2019-08-21] MEDS: FLAGYL TAB 500 MG PO SCH (08:05)
[2019-08-21] MEDS ORDERED: LEVAQUIN TAB 250 MG PO SCH (09:00)
[2019-08-21 10:26] LABS: BASOPHILS % (AUTO) 0.4 % (0.2-1.0); HEMATOCRIT 27.5 % (42.0-54.0); HEMOGLOBIN 9.5 g/dL (13.5-18.0); LYMPHOCYTES # (AUTO) 0.5 X10^3/uL (1.3-2.9); LYMPHOCYTES % (AUTO) 9.7 % (21.0-51.0); MEAN CORPUSCULAR HEMOGLOBIN 33.1 pg (27.0-34.0); MEAN CORPUSCULAR HGB CONC 34.5 g/dL (33.0-35.0); MEAN PLATELET VOLUME 9.6 fL (7.4-11.0); MONOCYTES # (AUTO) 0.4 x10^3/uL (0.3-0.8); MONOCYTES % (AUTO) 8.2 % (0.0-13.0); NEUTROPHILS # (AUTO) 4.1 x10^3/uL (2.2-4.8); NEUTROPHILS % (AUTO) 81.7 % (42.0-75.0); PLATELET COUNT 77 X10^3/uL (150.0-450.0); RED BLOOD COUNT 2.86 X10^6/uL (4.7-6.0); RED CELL DISTRIBUTION WIDTH 12.5 % (11.6-16.5)
[2019-08-21 12:23] LABS: HEMOGLOBIN 9.6 g/dL (13.5-18.0)
--- NOTE | 2019-08-21 14:12 | DR.H&P ---
H&P - History & Physical for Day of: H&P Date: 08/20/19 - Chief Complaint Chief Complaint: FEVER,WEAKNESS, CONFUSION, CCC - History of Present Illness History of Present Illness: STATES PT. HAS BEEN HAVING A FEVER, WEAKNESS AND DECREASED APPETITE SINCE MONDAY. SHE BELIEVES PT. IS DEHYDRATED. PT. HAS BEEN TO PCP TWICE IN THE PAST 4 WEEKS DUE TO DIARRHEA WHICH HAS NOW SUBSIDED. PT. IS CURRENTLY ON ANTIBIOTICS. PT HAS PMH OF HTN, OA, DM. PT DENIES ANY CARDIAC HISTORY. PT ADMITTED FOR TREATMENT OF ACUTE ILLNESS. - Past Medical History Past Medical History: Angina, Hypertension, Diabetes, Seizures - Past Surgical History Surgical History: Joint Replacement, Ortho Surgery - Family History Family Medical History: Diabetes Mellitus, [place] - Social History Does patient currently use any type of tobacco product: No Have you used tobacco products in the last 12 months: No Type of Tobacco Use: None Does any household member use tobacco: No Alcohol Use: None Drug Use: None - Medications Home Medications: No Known Drug Allergies Allergy (Verified 08/20/19 10:35) CONTINUE taking the following medications metronidazole 500 mg PO BID 08/20/19 [History] phenobarbital 32.4 mg PO TID 08/20/19 [History] - Review of Systems Constitutional: Fever, Chills, Weakness, Malaise Eyes: No Symptoms Reported ENT: No Symptoms Reported Respiratory: Cough Cardiovascular: No Symptoms Reported Gastrointestinal: Nausea, Diarrhea Genitourinary: No Symptoms Reported Musculoskeletal: No Symptoms Reported Skin: No Symptoms Reported Neurological: Confusion (REPORTED PER SPOUSE WITH HIGH FEVER) - Physical Exam Vital Signs: Temperature 98.3 F Pulse Rate [Left Brachial] 84 Pulse Rate 118 Respiratory Rate 18 Blood Pressure [Right Arm] 140/67 Blood Pressure [Left Arm] 122/58 Blood Pressure 176/80 O2 Sat by Pulse Oximetry 93 Oriented: Normal Eyes: Normal Ear: Normal Nose: Normal Throat: Normal Respiratory: RLL Diminished, LLL Diminished Cardiovascular: Normal. negative: Edema : Normal Auscultation: Bowel Sounds: Increased Tenderness: Normal Skin: Decreased [place]urg[place] Musculoskeletal: Normal Psychiatric: Normal Mood Description: Calm Speech Pattern: Clear, Appropriate - Assessment/Plan (1) Right lower lobe pneumonia Status: Acute Plan: ADMIT, PNEUMONIA PROTOCOL. IV ATBX, RESP THERAPY, SUPPLEMENTAL O2. GENTLE IV HYDRATION. REPEAT AM LABS, BLOOD URINE AND SPUTUM CULTURES ON AD [place]. FEVER CONTROL, BS CONTROL SSI. ABG ON ADMISSION, CT ABD/PELVIS IN ER (2) Diarrheal stools Status: Acute (3) Diabetes Status: Acute (4) Anemia Status: Acute - Allergies Allergies/Adverse Reactions: Allergies Allergy/AdvReac Type Severity Reaction Status Date / Time No Known Drug Allergies Allergy Verified 08/20/19 10:35
[2019-08-21] MEDS: PATIENT'S HOME MEDICATION PO SCH ×2 (15:30→21:37)
[2019-08-21] MEDS: SNACK - Diabetic Appropriate PO SCH (21:48)
[2019-08-22] MEDS: DUONEB 0.5 MG/3 MG (3 mL) NEB SCH ×4 (01:20→17:30)
[2019-08-22] MEDS: NS 1000 ML 1,000 ML IV SCH ×3 (01:20→11:33)
[2019-08-22] MEDS: PATIENT'S HOME MEDICATION PO SCH ×3 (06:12→21:04)
[2019-08-22] MEDS: DILANTIN CAP 100 MG EXT REL PO SCH ×3 (06:12→21:03)
[2019-08-22 06:13] LABS: BASOPHILS % (AUTO) 0.2 % (0.2-1.0); EOSINOPHILS # (AUTO) 0.1 x10^3/uL (0.0-0.2); EOSINOPHILS % (AUTO) 0.7 % (0.9-2.9); HEMATOCRIT 34.5 % (42.0-54.0); HEMOGLOBIN 11.7 g/dL (13.5-18.0); LYMPHOCYTES # (AUTO) 0.8 X10^3/uL (1.3-2.9); LYMPHOCYTES % (AUTO) 9.9 % (21.0-51.0); MEAN CORPUSCULAR HEMOGLOBIN 32.5 pg (27.0-34.0); MEAN CORPUSCULAR HGB CONC 33.8 g/dL (33.0-35.0); MEAN CORPUSCULAR VOLUME 96.2 fL (80.0-100.0); MEAN PLATELET VOLUME 9.9 fL (7.4-11.0); MONOCYTES # (AUTO) 0.6 x10^3/uL (0.3-0.8); MONOCYTES % (AUTO) 7.2 % (0.0-13.0); NEUTROPHILS # (AUTO) 6.8 x10^3/uL (2.2-4.8); PLATELET COUNT 120 X10^3/uL (150.0-450.0); RED BLOOD COUNT 3.58 X10^6/uL (4.7-6.0); RED CELL DISTRIBUTION WIDTH 12.7 % (11.6-16.5); WHITE BLOOD COUNT 8.3 X10^3/uL (3.6-10.0)
[2019-08-22] MEDS: PHENOBARBITAL TAB 30 MG (32.4MG) PO SCH ×3 (06:13→21:04)
[2019-08-22 06:18] LABS: ALBUMIN 2.8 g/dL (3.4-5.0); CALCIUM 7.9 mg/dL (8.5-10.1); CARBON DIOXIDE 23.2 mmol/L (21-32); COR CA(FOR HYPOALB) 8.9 mg/dL (8.5-10.1); CREATININE 1.53 mg/dL (0.70-1.30); TOTAL PROTEIN 7.7 g/dL (6.4-8.2)
[2019-08-22] MEDS: NEURONTIN CAP 300 MG PO SCH ×2 (08:51→20:32)
[2019-08-22] MEDS: GLUCOTROL PO SCH ×2 (08:51→20:31)
[2019-08-22] MEDS: ROBITUSSIN DM PO SCH ×4 (08:52→20:32)
[2019-08-22] MEDS: ZESTRIL TAB 5 MG PO SCH (08:52)
[2019-08-22] MEDS: ZITHROMAX INJ 500 MG VIAL 500 MG in NS 250 ML IV 250 ML IV SCH (08:52)
[2019-08-22] MEDS: ROCEPHIN VIAL 1 GRAM 1 G in NS 100 ML IV + SPIKE MINIBAG* 100 ML IV SCH (08:53)
[2019-08-22] MEDS ORDERED: LEVAQUIN PREMIX IV 500 MG 500 MG/100 ML BAG IV ONE (09:00)
[2019-08-22] MEDS: LOVENOX INJ 40 MG SYR SC SCH (09:33)
[2019-08-22] MEDS ORDERED: FLOMAX PO SCH (10:00)
--- NOTE | 2019-08-22 10:29 | RAD ---
HISTORYPNEUMONIA, DEHYDRATIONSTUDYCHEST, PA/LAT [id number]/31/2019.FINDINGSThe trachea is midline. The cardiac silhouette is unremarkable. There is aortic uncoiling. Left lung is clear. The small infiltrate in the posterior basal segment of the right lower lobe is again seen. This is unchanged compared to the prior study. No new infiltrates are seen. No CHF, pleural fluid or pneumothorax is seen.. The bony thorax is unremarkable.IMPRESSIONStable small right basilar infiltrate.Electronically signed by: GUADALUPE WILLETT (Aug 22, 2019 10:28:07)
[2019-08-22] MEDS: MILK OF MAGNESIA PO SCH ×2 (10:46→20:31)
[2019-08-22 11:03] LABS: CRYPTOSPORIDIUM PARVUM ANTIGEN NEGATIVE (NEGATIVE); GIARDIA LAMBLIA ANTIGEN NEGATIVE (NEGATIVE)
[2019-08-22] MEDS: SNACK - Diabetic Appropriate PO SCH (20:31)
[2019-08-23] MEDS: DUONEB 0.5 MG/3 MG (3 mL) NEB SCH ×4 (00:40→17:09)
[2019-08-23 05:22] LABS: BASOPHILS % (AUTO) 0.3 % (0.2-1.0); EOSINOPHILS # (AUTO) 0.1 x10^3/uL (0.0-0.2); EOSINOPHILS % (AUTO) 1.3 % (0.9-2.9); HEMATOCRIT 30.1 % (42.0-54.0); HEMOGLOBIN 10.2 g/dL (13.5-18.0); LYMPHOCYTES # (AUTO) 0.4 X10^3/uL (1.3-2.9); LYMPHOCYTES % (AUTO) 10.1 % (21.0-51.0); MEAN CORPUSCULAR HEMOGLOBIN 32.5 pg (27.0-34.0); MEAN CORPUSCULAR HGB CONC 33.8 g/dL (33.0-35.0); MEAN CORPUSCULAR VOLUME 96.2 fL (80.0-100.0); MEAN PLATELET VOLUME 10.3 fL (7.4-11.0); MONOCYTES # (AUTO) 0.3 x10^3/uL (0.3-0.8); NEUTROPHILS # (AUTO) 3.3 x10^3/uL (2.2-4.8); NEUTROPHILS % (AUTO) 81.3 % (42.0-75.0); PLATELET COUNT 110 X10^3/uL (150.0-450.0); RED BLOOD COUNT 3.13 X10^6/uL (4.7-6.0); RED CELL DISTRIBUTION WIDTH 12.6 % (11.6-16.5); WHITE BLOOD COUNT 4.1 X10^3/uL (3.6-10.0)
[2019-08-23 05:46] LABS: ALBUMIN 2.3 g/dL (3.4-5.0); CALCIUM 7.5 mg/dL (8.5-10.1); CARBON DIOXIDE 23.6 mmol/L (21-32); COR CA(FOR HYPOALB) 8.9 mg/dL (8.5-10.1); CREATININE 1.5 mg/dL (0.70-1.30); TOTAL PROTEIN 6.5 g/dL (6.4-8.2)
[2019-08-23] MEDS: NS 1000 ML 1,000 ML IV SCH ×3 (05:50→14:32)
[2019-08-23] MEDS: DILANTIN CAP 100 MG EXT REL PO SCH ×3 (05:51→21:28)
[2019-08-23] MEDS: PATIENT'S HOME MEDICATION PO SCH ×3 (05:51→21:32)
[2019-08-23] MEDS: PHENOBARBITAL TAB 30 MG (32.4MG) PO SCH ×3 (05:51→21:29)
[2019-08-23] MEDS: GLUCOTROL PO SCH ×2 (09:06→21:26)
[2019-08-23] MEDS: ROCEPHIN VIAL 1 GRAM 1 G in NS 100 ML IV + SPIKE MINIBAG* 100 ML IV SCH (09:06)
[2019-08-23] MEDS: ZESTRIL TAB 5 MG PO SCH (09:06)
[2019-08-23] MEDS: LOVENOX INJ 40 MG SYR SC SCH (09:07)
[2019-08-23] MEDS: ROBITUSSIN DM PO SCH ×4 (09:07→21:27)
[2019-08-23] MEDS: NEURONTIN CAP 300 MG PO SCH ×2 (09:07→21:27)
[2019-08-23] MEDS: LEVAQUIN PREMIX IV 250 MG 250 MG/50 ML BAG IV SCH (09:08)
[2019-08-23] MEDS: MILK OF MAGNESIA PO SCH ×2 (09:08→21:26)
[2019-08-23] MEDS: ZOSYN VIAL 3.375 GRAMS 3.375 G in NS 100 ML IV + SPIKE MINIBAG* 100 ML IV SCH ×3 (09:08→21:28)
--- NOTE | 2019-08-23 13:41 | PCM.PROG ---
Progress Note - Progress Note for Day of Date of Exam: 08/23/19 - Subjective Subjective: Mr. Saucedo is a 79-year-old white male who was an ER admission with pneumonia, elevated lactic acid level, recent diarrheal illness, history of seizure disorder, and hypertension. Since admission, the patient has been on gentle IV hydration, as well as antibiotic therapy, he is currently on levaquin and zosyn. He has been unable to produce a sputum. We ordered a repeat chest x-ray on showing a right bibasilar infiltrate which we suspect could possibly be aspiration due to patients reports of increased acid reflux and indigestion over the last couple of weeks. He already had an appointment to see Dr. Hernandez on an outpatient basis. The patient did have complaints of urinary retention. Pt had in and out cath with ~600 cc output. He was started on flomax 0.4mg yesterday and reports improving outpt this am. Psa was 11.[address] revealing enlarged prostate. Discussed urology follow up on outpt basis. The patients blood cultures at this time are showing no growth. He has had a urine culture ordered also from admission on 08/20/19, which is showing no growth. Pt has been afebrile for 24hrs. Pt was tachycardic this am following neb treatment, with repeat pulse still 120's. Ekg revealed AFIB with pt denying hx of AFIB. Pt denies any chest pain or palpitations. Pt moved to ICU, serical CE and ekg ordered. - Past Medical Family Social History Past Med/Fam/Surg Hx: No changes since H&P Allergies: Allergies No Known Drug Allergies Allergy (Verified 08/20/19 10:35) - Review of Systems ROS: No change since H&P - Vital Signs and I&O's Vital Signs: Temperature 98.4 F Pulse Rate [Left Brachial] 107 Pulse Rate 72 Respiratory Rate 20 Blood Pressure [Right Arm] 145/82 Blood Pressure [Left Arm] 131/71 Blood Pressure 176/80 O2 Sat by Pulse Oximetry 95 Intake and Output: Intake & Output 08/21/19 08/22/19 08/23/19 08/24/19 11:59 11:59 11:59 11:59 Intake Total 750 / 750 2460 / 2460 1220 / 1220 Output Total 350 / 350 750 / 750 100 / 100 Balance 400 / 400 1710 / 1710 1120 / 1120 - Physical Exam Oriented: Normal Eyes: Normal Ear: Normal Nose: Normal Throat: Normal Respiratory: Diminished. negative: Wheezes, Rales Cardiovascular: Tachycardia : Normal Auscultation: Bowel Sounds: Increased Tenderness: Normal Skin: Decreased Turgur Musculoskeletal: Normal Psychiatric: Normal Mood Description: Calm Speech Pattern: Clear, Appropriate - Laboratory and Diagnostics Result Diagrams: 08/23/19 05:02 08/23/19 05:02 Labs: 08/20/19 16:35 Urine,Clean Catch Urine Culture - Final 08/20/19 11:45 Blood Blood Culture - Preliminary 08/20/19 11:25 Blood Blood Culture - Preliminary Laboratory WBC 4.1 X10^3/uL (3.6-10.0) 08/23/19 05:02 RBC 3.13 X10^6/uL (4.7-6.0) L 08/23/19 05:02 Hgb 10.2 g/dL (13.5-18.0) L 08/23/19 05:02 Hct 30.1 % (42.0-54.0) L 08/23/19 05:02 MCV 96.2 fL (80.0-100.0) 08/23/19 05:02 MCH 32.5 pg (27.0-34.0) 08/23/19 05:02 MCHC 33.8 g/dL (33.0-35.0) 08/23/19 05:02 RDW 12.6 % (11.6-16.5) 08/23/19 05:02 Plt Count 110 X10^3/uL (150.0-450.0) L 08/23/19 05:02 MPV 10.3 fL (7.4-11.0) 08/23/19 05:02 Neut % (Auto) 81.3 % (42.0-75.0) H 08/23/19 05:02 Lymph % (Auto) 10.1 % (21.0-51.0) L 08/23/19 05:02 [place] % (Auto) 7.0 % (0.0-13.0) 08/23/19 05:02 Eos % (Auto) 1.3 % (0.9-2.9) 08/23/19 05:02 Baso % (Auto) 0.3 % (0.2-1.0) 08/23/19 05:02 Neut # (Auto) 3.3 x10^3/uL (2.2-4.8) 08/23/19 05:02 Lymph # (Auto) 0.4 X10^3/uL (1.3-2.9) L 08/23/19 05:02 [place] # (Auto) 0.3 x10^3/uL (0.3-0.8) 08/23/19 05:02 Eos # (Auto) 0.1 x10^3/uL (0.0-0.2) 08/23/19 05:02 Baso # (Auto) 0.0 X10^3/uL (0.0-0.1) 08/23/19 05:02 Absolute Nucleated RBC 0.0 /100WBC 08/23/19 05:02 Sample Site Rr 08/20/19 17:20 ABG pH 7.460 (7.35-7.45) H 08/20/19 17:20 ABG pCO2 40.0 mmHg (35.0-45.0) 08/20/19 17:20 ABG pO2 133.0 mmHg (80.0-100.0) H 08/20/19 17:20 ABG HCO3 28.4 mmol/L (22-26) H 08/20/19 17:20 ABG O2 Saturation 99.0 % (90-100) 08/20/19 17:20 ABG Base Excess 4.2 mmol/L (-2.0-2.0) H 08/20/19 17:20 Kavin Test Pos 08/20/19 17:20 A-a Gradient 17.0 mmHg 08/20/19 17:20 FiO2 28.0 08/20/19 17:20 Blood Gas Comments Ramses well cb 08/20/19 17:20 Sodium 134 mmol/L (136-145) L 08/23/19 05:02 Corrected Sodium 139 mmol/L (136-145) 08/23/19 05:02 Potassium 4.0 mmol/L (3.5-5.1) 08/23/19 05:02 Chloride 100 mmol/L (98-107) 08/23/19 05:02 Carbon Dioxide 23.6 mmol/L (21-32) 08/23/19 05:02 BUN 24 mg/dL (7-18) H 08/23/19 05:02 Creatinine 1.50 mg/dL (0.70-1.30) H 08/23/19 05:02 Est GFR (MDRD) Af Amer 58 (>60) L 08/23/19 05:02 Est GFR (MDRD) Non-Af 48 (>60) L 08/23/19 05:02 Glucose 299 mg/dL (65-99) H 08/23/19 05:02 POC Glucose (mg/dL) 289 mg/dL (65-99) H 08/23/19 11:35 Lactic Acid 2.7 mmol/L (0.4-2.0) H 08/22/19 09:05 Calcium 7.5 mg/dL (8.5-10.1) L 08/23/19 05:02 Corrected Calcium 8.9 mg/dL (8.5-10.1) 08/23/19 05:02 Total Bilirubin 0.40 mg/dL (0.2-1.0) 08/23/19 05:02 AST 28 Units/L (15-37) 08/23/19 05:02 ALT 25 Units/L (12-78) 08/23/19 05:02 Alkaline Phosphatase 77 Units/L (46-116) 08/23/19 05:02 Total Protein 6.5 g/dL (6.4-8.2) 08/23/19 05:02 Albumin 2.3 g/dL (3.4-5.0) L 08/23/19 05:02 Globulin 4.2 g/dL (2.5-4.5) 08/23/19 05:02 Albumin/Globulin Ratio 0.5 Ratio (1.1-2.1) L 08/23/19 05:02 Total PSA 11.42 ng/mL (0.13-4.0) H 08/22/19 17:56 Specimen Type Clean catch urine 08/20/19 16:35 Urine Color Yellow (YELLOW) 08/20/19 16:35 Urine Appearance Slightly hazy (CLEAR) 08/20/19 16:35 Urine pH 5.0 (5.0 - 8.0) 08/20/19 16:35 Ur Specific [place] 1.010 (1.000-1.030) 08/20/19 16:35 Urine Protein 3+ (NEGATIVE) 08/20/19 16:35 Urine Glucose (UA) 1+ (NEGATIVE) 08/20/19 16:35 Urine Ketones Negative (NEGATIVE) 08/20/19 16:35 Urine Occult Blood 4+ (NEGATIVE) 08/20/19 16:35 Urine Nitrite Negative (NEGATIVE) 08/20/19 16:35 Urine Bilirubin Negative (NEGATIVE) 08/20/19 16:35 Urine Urobilinogen 1+ (NORMAL) 08/20/19 16:35 Ur Leukocyte Esterase Negative (NEGATIVE) 08/20/19 16:35 Urine RBC 0-2 /HPF (0-3) 08/20/19 16:35 Urine WBC None seen /HPF (0-5) 08/20/19 16:35 Ur Squamous Epith Cells Rare /HPF (NEGATIVE) 08/20/19 16:35 Urine Bacteria Trace /HPF (NEGATIVE) 08/20/19 16:35 Urine Mucus Few /HPF (NEGATIVE) 08/20/19 16:35 Ur Culture Indicated? Yes/culture set up 08/20/19 16:35 Stool Description 40g brn, unformed 08/22/19 09:42 Stool Description 40g brn,unformed 08/22/19 09:42 Stl Occult Blood (IFOB) Positive (NEGATIVE) A 08/22/19 09:42 Stool for White Cells Positive (NEGATIVE) A 08/22/19 09:42 Stl C. diff Tox B Gene Negative (NEGATIVE) 08/22/19 09:42 Stl C. diff 027-NAP1-BI Negative (NEGATIVE) 08/22/19 09:42 Phenytoin 8.3 ug/mL (10-20) L 08/20/19 13:58 Phenobarbital 23.9 ug/mL (15-40) 08/20/19 13:58 Acetone, Semi-Quant Negative (NEGATIVE) 08/20/19 11:45 Cryptosporid parvum Ag Negative (NEGATIVE) 08/22/19 09:42 Giardia lamblia Ag Negative (NEGATIVE) 08/22/19 09:42 Influenza Type A (PCR) Negative (NEGATIVE) 08/20/19 10:52 Influenza Type B (PCR) Negative (NEGATIVE) 08/20/19 10:52 S. pyogenes (TEM-PCR) Not detected (NOT DETECT) 08/20/19 10:52 - Plan (1) Right lower lobe pneumonia Status: Acute Plan: PNEUMONIA PROTOCOL. IV ATBX, RESP THERAPY, SUPPLEMENTAL O2. GENTLE IV HYDRATION. REPEAT AM LABS, BLOOD URINE AND SPUTUM CULTURES ON ADMISSION. FEVER CONTROL, BS CONTROL SSI. ABG ON ADMISSION, CT ABD/PELVIS IN ER (2) Atrial fibrillation Status: Acute Plan: ICU, SERIAL CE AND EKG. RATE CONTROL, BP MONITORING (3) Diarrheal stools Status: Acute (4) Diabetes Status: Acute (5) Anemia Status: Acute (6) GERD (gastroesophageal reflux disease) Status: Acute (7) BPH with elevated PSA Status: Acute
--- NOTE | 2019-08-23 14:01 | CT ---
HISTORYRight lower lobe pneumonia coughSTUDYCHEST W/O CONTechnique: Axial noncontrast images with coronal and sagittal reformats. Dose reduction procedures were used with mA/kv adjusted for body size. THIS EXAMINATION IS LIMITED DUE TO THE LACK OF INTRAVENOUS CONTRAST. The examination was performed in this manner at the sole discretion of the ordering caregiver.COMPARISONNoneFINDINGSExamination of the mediastinum demonstrated no evidence for mediastin al masses, enlarged mediastinal or enlarged hilar adenopathy. A minimal right pleural effusion is pre sent. No chest wall or axillary abnormality is identified. There is a small hiatal hernia present. Th ose portions of the upper abdominal organs visualized were within normal limits. Examination of the l [place] demonstrated no significant nodules, masses, bronchiectasis, or significant peribronchial thickening. There is a right lower lobe infiltrate posteriorly and inferiorly consistent with pneumon ia. The remainder of the lung parish are clear.IMPRESSIONRight basilar pneumonia better visualized on the CT than on the recent chest x-rayMinimal right pleural effusionElectronically signed by: ANTONIO HUNTER (Aug 23, 2019 14:00:43)
[2019-08-23 14:03] LABS: CREATINE KINASE 141 Units/L (39-308); CREATINE KINASE MB 1.4 ng/mL (0-4.0); TROPONIN I < 0.02 ng/mL (0-1.5)
[2019-08-23] MEDS: CARDIZEM INJ 125 MG VIAL 125 MG in NS 100 ML IV 100 ML IV PRN ×2 (14:14→22:42)
[2019-08-23] MEDS: PROTONIX INJ 40 MG VIAL IVP SCH (14:31)
[2019-08-23] MEDS ORDERED: GLUCOPHAGE ONE (17:43)
[2019-08-23] MEDS: GLUCOPHAGE PO SCH (17:48)
[2019-08-23 19:43] LABS: CREATINE KINASE 111 Units/L (39-308); CREATINE KINASE MB 1.1 ng/mL (0-4.0); TROPONIN I < 0.02 ng/mL (0-1.5)
[2019-08-23] MEDS: SNACK - Diabetic Appropriate PO SCH (20:00)
[2019-08-24] MEDS: DUONEB 0.5 MG/3 MG (3 mL) NEB SCH ×4 (00:45→16:31)
[2019-08-24 01:40] LABS: CREATINE KINASE 103 Units/L (39-308); CREATINE KINASE MB < 1.0 ng/mL (0-4.0); TROPONIN I < 0.02 ng/mL (0-1.5)
[2019-08-24] MEDS ORDERED: GLUCOPHAGE ONE (05:01)
[2019-08-24] MEDS: PHENOBARBITAL TAB 30 MG (32.4MG) PO SCH ×3 (05:15→21:01)
[2019-08-24] MEDS: DILANTIN CAP 100 MG EXT REL PO SCH ×3 (05:15→21:01)
[2019-08-24] MEDS: ZOSYN VIAL 3.375 GRAMS 3.375 G in NS 100 ML IV + SPIKE MINIBAG* 100 ML IV SCH ×3 (05:15→21:02)
[2019-08-24] MEDS: PATIENT'S HOME MEDICATION PO SCH ×3 (05:16→21:03)
[2019-08-24 05:30] LABS: BASOPHILS % (AUTO) 0.7 % (0.2-1.0); EOSINOPHILS # (AUTO) 0.1 x10^3/uL (0.0-0.2); EOSINOPHILS % (AUTO) 2.7 % (0.9-2.9); HEMATOCRIT 28.1 % (42.0-54.0); HEMOGLOBIN 9.7 g/dL (13.5-18.0); LYMPHOCYTES # (AUTO) 0.5 X10^3/uL (1.3-2.9); MEAN CORPUSCULAR HEMOGLOBIN 33.5 pg (27.0-34.0); MEAN CORPUSCULAR HGB CONC 34.6 g/dL (33.0-35.0); MEAN PLATELET VOLUME 10.5 fL (7.4-11.0); MONOCYTES # (AUTO) 0.4 x10^3/uL (0.3-0.8); MONOCYTES % (AUTO) 8.7 % (0.0-13.0); NEUTROPHILS # (AUTO) 3.3 x10^3/uL (2.2-4.8); NEUTROPHILS % (AUTO) 75.9 % (42.0-75.0); PLATELET COUNT 135 X10^3/uL (150.0-450.0); RED CELL DISTRIBUTION WIDTH 12.7 % (11.6-16.5); WHITE BLOOD COUNT 4.4 X10^3/uL (3.6-10.0)
[2019-08-24] MEDS: NS 1000 ML 1,000 ML IV SCH ×2 (05:43→18:13)
[2019-08-24 05:51] LABS: CALCIUM 7.2 mg/dL (8.5-10.1); CARBON DIOXIDE 21.1 mmol/L (21-32); COR CA(FOR HYPOALB) 8.8 mg/dL (8.5-10.1); CREATININE 2.21 mg/dL (0.70-1.30); TOTAL PROTEIN 6.1 g/dL (6.4-8.2)
[2019-08-24] MEDS: GLUCOPHAGE PO SCH (06:01)
[2019-08-24] MEDS: LEVAQUIN PREMIX IV 250 MG 250 MG/50 ML BAG IV SCH (09:42)
[2019-08-24] MEDS: LOVENOX INJ 40 MG SYR SC SCH (09:42)
[2019-08-24] MEDS: GLUCOTROL PO SCH (09:45)
[2019-08-24] MEDS: NEURONTIN CAP 300 MG PO SCH ×2 (09:45→21:02)
[2019-08-24] MEDS: ROBITUSSIN DM PO SCH ×4 (09:45→21:02)
[2019-08-24] MEDS: PROTONIX INJ 40 MG VIAL IVP SCH (09:45)
[2019-08-24] MEDS: MILK OF MAGNESIA PO SCH ×2 (09:46→21:03)
[2019-08-24] MEDS ORDERED: NEXTERONE IV 150 MG PREMIX* 150 MG/100 ML BAG IV ONE (10:05)
[2019-08-24] MEDS ORDERED: NEXTERONE IV 360 MG PREMIX* 360 MG/200 ML BAG IV PRN ×2 (10:13→10:15)
[2019-08-24] MEDS ORDERED: DRUG FILTER EXTENSION SET ONE (11:28)
[2019-08-24] MEDS: HumuLIN R SUBCUT PRN ×2 (12:38→17:09)
--- NOTE | 2019-08-24 13:07 | RAD ---
HISTORYAFib, pneumoniaSTUDYPortable AP [id number]/2020FINDINGSContinued normal heart size. Increasing infiltrate right lower lobe. Minimal subsegmental atelectasis left base. The upper lungs are clear.IMPRESSIONIncreasing infiltrat e right lower lobe compatible with pneumonia.Electronically signed by: VICENTE MARTINS (Aug 24, 2019 1 3:06:31)
[2019-08-24 15:56] LABS: BASOPHILS % (AUTO) 0.4 % (0.2-1.0); EOSINOPHILS # (AUTO) 0.1 x10^3/uL (0.0-0.2); EOSINOPHILS % (AUTO) 1.7 % (0.9-2.9); HEMATOCRIT 29.9 % (42.0-54.0); HEMOGLOBIN 10.2 g/dL (13.5-18.0); LYMPHOCYTES # (AUTO) 0.4 X10^3/uL (1.3-2.9); LYMPHOCYTES % (AUTO) 8.1 % (21.0-51.0); MEAN CORPUSCULAR HEMOGLOBIN 32.6 pg (27.0-34.0); MEAN CORPUSCULAR HGB CONC 34.1 g/dL (33.0-35.0); MEAN CORPUSCULAR VOLUME 95.4 fL (80.0-100.0); MEAN PLATELET VOLUME 9.3 fL (7.4-11.0); MONOCYTES # (AUTO) 0.4 x10^3/uL (0.3-0.8); MONOCYTES % (AUTO) 9.1 % (0.0-13.0); NEUTROPHILS # (AUTO) 3.9 x10^3/uL (2.2-4.8); NEUTROPHILS % (AUTO) 80.7 % (42.0-75.0); PLATELET COUNT 156 X10^3/uL (150.0-450.0); RED BLOOD COUNT 3.13 X10^6/uL (4.7-6.0); RED CELL DISTRIBUTION WIDTH 12.9 % (11.6-16.5); WHITE BLOOD COUNT 4.8 X10^3/uL (3.6-10.0)
[2019-08-24 15:57] LABS: BILIRUBIN,URINE NEGATIVE (NEGATIVE); BLOOD/HEMOGLOBIN,URINE 3+ (NEGATIVE); GLUCOSE, URINE 3+ (NEGATIVE); KETONES,URINE NEGATIVE (NEGATIVE); LEUKOCYTE ESTERASE ,URINE NEGATIVE (NEGATIVE); NITRITES,URINE NEGATIVE (NEGATIVE); PROTEIN,URINE 2+ (NEGATIVE); UROBILINOGEN,URINE NORMAL (NORMAL)
[2019-08-24 16:05] LABS: APPEARANCE,URINE CLEAR (CLEAR); BACTERIA,URINE TRACE /HPF (NEGATIVE); COLOR,URINE AMBER (YELLOW); SQUAMOUS EPITHELIAL CELL,UR NEGATIVE /HPF (NEGATIVE)
[2019-08-24 16:06] LABS: ALBUMIN 2.1 g/dL (3.4-5.0); CALCIUM 7.3 mg/dL (8.5-10.1); CARBON DIOXIDE 21.6 mmol/L (21-32); COR CA(FOR HYPOALB) 8.8 mg/dL (8.5-10.1); CREATININE 2.57 mg/dL (0.70-1.30); TOTAL PROTEIN 6.4 g/dL (6.4-8.2)
[2019-08-24 16:06] LABS: AMORPHOUS SEDIMENT,UR 2+ /HPF (NEGATIVE); MUCUS,URINE FEW /HPF (NEGATIVE)
[2019-08-24] MEDS: ELIQUIS PO SCH (21:02)
[2019-08-24] MEDS: SNACK - Diabetic Appropriate PO SCH (21:18)
[2019-08-25] MEDS: DUONEB 0.5 MG/3 MG (3 mL) NEB SCH ×6 (00:45→18:18)
[2019-08-25] MEDS: PATIENT'S HOME MEDICATION PO SCH ×3 (05:13→21:04)
[2019-08-25] MEDS: PHENOBARBITAL TAB 30 MG (32.4MG) PO SCH ×3 (05:13→21:04)
[2019-08-25] MEDS: DILANTIN CAP 100 MG EXT REL PO SCH ×3 (05:13→21:04)
[2019-08-25] MEDS: ZOSYN VIAL 3.375 GRAMS 3.375 G in NS 100 ML IV + SPIKE MINIBAG* 100 ML IV SCH ×3 (05:13→21:05)
[2019-08-25] MEDS: NS 1000 ML 1,000 ML IV SCH ×3 (05:14→21:04)
[2019-08-25 05:39] LABS: BASOPHILS % (AUTO) 0.2 % (0.2-1.0); EOSINOPHILS # (AUTO) 0.1 x10^3/uL (0.0-0.2); EOSINOPHILS % (AUTO) 3.1 % (0.9-2.9); HEMATOCRIT 28.2 % (42.0-54.0); HEMOGLOBIN 9.7 g/dL (13.5-18.0); LYMPHOCYTES # (AUTO) 0.4 X10^3/uL (1.3-2.9); LYMPHOCYTES % (AUTO) 9.9 % (21.0-51.0); MEAN CORPUSCULAR HEMOGLOBIN 33.1 pg (27.0-34.0); MEAN CORPUSCULAR HGB CONC 34.5 g/dL (33.0-35.0); MEAN CORPUSCULAR VOLUME 95.9 fL (80.0-100.0); MEAN PLATELET VOLUME 9.6 fL (7.4-11.0); MONOCYTES # (AUTO) 0.4 x10^3/uL (0.3-0.8); MONOCYTES % (AUTO) 9.4 % (0.0-13.0); NEUTROPHILS # (AUTO) 3.2 x10^3/uL (2.2-4.8); NEUTROPHILS % (AUTO) 77.4 % (42.0-75.0); PLATELET COUNT 174 X10^3/uL (150.0-450.0); RED BLOOD COUNT 2.94 X10^6/uL (4.7-6.0); RED CELL DISTRIBUTION WIDTH 12.8 % (11.6-16.5); WHITE BLOOD COUNT 4.2 X10^3/uL (3.6-10.0)
[2019-08-25 05:56] LABS: CALCIUM 7.4 mg/dL (8.5-10.1); CARBON DIOXIDE 25.6 mmol/L (21-32); CREATININE 1.98 mg/dL (0.70-1.30)
[2019-08-25] MEDS: ELIQUIS PO SCH ×2 (09:35→20:41)
[2019-08-25] MEDS: ROBITUSSIN DM PO SCH ×4 (09:35→20:40)
[2019-08-25] MEDS: PROTONIX INJ 40 MG VIAL IVP SCH (09:36)
[2019-08-25] MEDS: NEURONTIN CAP 300 MG PO SCH ×2 (09:36→20:40)
[2019-08-25] MEDS: MILK OF MAGNESIA PO SCH ×2 (09:37→20:41)
[2019-08-25] MEDS: HumuLIN R SUBCUT PRN ×2 (12:15→17:29)
--- NOTE | 2019-08-25 13:41 | PCM.PROG ---
Progress Note - Progress Note for Day of Date of Exam: 08/25/19 - Subjective Subjective: Mr. Saucedo is a 79-year-old white male who was an ER admission with pneumonia, elevated lactic acid level, recent diarrheal illness, history of seizure disorder, and hypertension. Since admission, the patient has been on gentle IV hydration, as well as antibiotic therapy, he is currently on levaquin and zosyn. He has been unable to produce a sputum. We ordered a repeat chest x-ray on showing a right bibasilar infiltrate which we suspect could possibly be aspiration due to patients reports of increased acid reflux and indigestion over the last couple of weeks. He already had an appointment to see Dr. Hernandez on an outpatient basis. The patient did have complaints of urinary retention and was started on flomax 0.4mg with decreased urinary outpt today, farr cath was placed for relief of retention and strict I & Os. Psa was 11.[address] revealing enlarged prostate. Discussed urology follow up on outpt basis. The patients blood cultures at this time are showing no growth. He has had a urine culture ordered also from admission on 08/20/19, which is showing no growth. Pt has been afebrile. Pt was transferred to ICU for newonset AFIB. Pt was started on Amiodarone due to failure to convert on cardizem drip. Pt rate this am 108, sinus tach. Pts bp with systolic elevation, we added lopressor po bid. Pt report JEWELL and increased fatigue and JEWELL at home prior to admission, denies chest pain. Pt reports he has coughed up mucous this am, but still feels generalized weakness. Discussed at length with pt and family his labs and diagnostic test results. - Past Medical Family Social History Past Med/Fam/Surg Hx: No changes since H&P Allergies: Allergies No Known Drug Allergies Allergy (Verified 08/20/19 10:35) - Review of Systems ROS: No change since H&P - Vital Signs and I&O's Vital Signs: Temperature 98.0 F Pulse Rate [Left Brachial] 99 Pulse Rate 96 Respiratory Rate 26 Blood Pressure [Right Arm] 163/79 Blood Pressure [Left Arm] 131/71 Blood Pressure 176/80 O2 Sat by Pulse Oximetry 97 Intake and Output: Intake & Output 08/23/19 08/24/19 08/25/19 08/26/19 11:59 11:59 11:59 11:59 Intake Total 1220 / 1220 2285 / 2285 3084 / 3084 Output Total 100 / 100 300 / 300 4050 / 4050 Balance 1120 / 1120 1984 -966 / -966 - Physical Exam Oriented: Normal Eyes: Normal Ear: Normal Nose: Normal Throat: Normal Respiratory: Diminished. negative: Wheezes, Rales Cardiovascular: Tachycardia : Normal Auscultation: Bowel Sounds: Increased Tenderness: Normal Skin: Decreased Turgur Musculoskeletal: Normal Psychiatric: Normal Mood Description: Calm Speech Pattern: Clear, Appropriate - Laboratory and Diagnostics Result Diagrams: 08/25/19 04:58 08/25/19 04:58 Labs: 08/25/19 09:47 Sputum - Expectorated Sputum - Final 08/20/19 16:35 Urine,Clean Catch Urine Culture - Final 08/20/19 11:45 Blood Blood Culture - Preliminary 08/20/19 11:25 Blood Blood Culture - Preliminary Laboratory WBC 4.2 X10^3/uL (3.6-10.0) 08/25/19 04:58 RBC 2.94 X10^6/uL (4.7-6.0) L 08/25/19 04:58 Hgb 9.7 g/dL (13.5-18.0) L 08/25/19 04:58 Hct 28.2 % (42.0-54.0) L 08/25/19 04:58 MCV 95.9 fL (80.0-100.0) 08/25/19 04:58 MCH 33.1 pg (27.0-34.0) 08/25/19 04:58 MCHC 34.5 g/dL (33.0-35.0) 08/25/19 04:58 RDW 12.8 % (11.6-16.5) 08/25/19 04:58 Plt Count 174 X10^3/uL (150.0-450.0) 08/25/19 04:58 MPV 9.6 fL (7.4-11.0) 08/25/19 04:58 Neut % (Auto) 77.4 % (42.0-75.0) H 08/25/19 04:58 Lymph % (Auto) 9.9 % (21.0-51.0) L 08/25/19 04:58 [place] % (Auto) 9.4 % (0.0-13.0) 08/25/19 04:58 Eos % (Auto) 3.1 % (0.9-2.9) H 08/25/19 04:58 Baso % (Auto) 0.2 % (0.2-1.0) 08/25/19 04:58 Neut # (Auto) 3.2 x10^3/uL (2.2-4.8) 08/25/19 04:58 Lymph # (Auto) 0.4 X10^3/uL (1.3-2.9) L 08/25/19 04:58 [place] # (Auto) 0.4 x10^3/uL (0.3-0.8) 08/25/19 04:58 Eos # (Auto) 0.1 x10^3/uL (0.0-0.2) 08/25/19 04:58 Baso # (Auto) 0.0 X10^3/uL (0.0-0.1) 08/25/19 04:58 Absolute Nucleated RBC 0.1 /100WBC 08/25/19 04:58 Sample Site Rr 08/20/19 17:20 ABG pH 7.460 (7.35-7.45) H 08/20/19 17:20 ABG pCO2 40.0 mmHg (35.0-45.0) 08/20/19 17:20 ABG pO2 133.0 mmHg (80.0-100.0) H 08/20/19 17:20 ABG HCO3 28.4 mmol/L (22-26) H 08/20/19 17:20 ABG O2 Saturation 99.0 % (90-100) 08/20/19 17:20 ABG Base Excess 4.2 mmol/L (-2.0-2.0) H 08/20/19 17:20 Kavin Test Pos 08/20/19 17:20 A-a Gradient 17.0 mmHg 08/20/19 17:20 FiO2 28.0 08/20/19 17:20 Blood Gas Comments Ramses well cb 08/20/19 17:20 Sodium 139 mmol/L (136-145) 08/25/19 04:58 Corrected Sodium 142 mmol/L (136-145) 08/25/19 04:58 Potassium 4.5 mmol/L (3.5-5.1) 08/25/19 04:58 Chloride 106 mmol/L (98-107) 08/25/19 04:58 Carbon Dioxide 25.6 mmol/L (21-32) 08/25/19 04:58 BUN 26 mg/dL (7-18) H 08/25/19 04:58 Creatinine 1.98 mg/dL (0.70-1.30) H 08/25/19 04:58 Est GFR (MDRD) Af Amer 42 (>60) L 08/25/19 04:58 Est GFR (MDRD) Non-Af 35 (>60) L 08/25/19 04:58 Glucose 209 mg/dL (65-99) H 08/25/19 04:58 POC Glucose (mg/dL) 357 mg/dL (65-99) H 08/25/19 11:50 Lactic Acid 1.9 mmol/L (0.4-2.0) 08/23/19 13:25 Calcium 7.4 mg/dL (8.5-10.1) L 08/25/19 04:58 Corrected Calcium 9.0 mg/dL (8.5-10.1) 08/25/19 04:58 Total Bilirubin 0.30 mg/dL (0.2-1.0) 08/25/19 04:58 AST 33 Units/L (15-37) 08/25/19 04:58 ALT 25 Units/L (12-78) 08/25/19 04:58 Alkaline Phosphatase 77 Units/L (46-116) 08/25/19 04:58 Creatine Kinase 103 Units/L (39-308) 08/24/19 01:10 CK-MB (CK-2) < 1.0 ng/mL (0-4.0) 08/24/19 01:10 CK/CKMB % Calc 1.0 % (<4) 08/24/19 01:10 Troponin I < 0.02 ng/mL (0-1.5) 08/24/19 01:10 Total Protein 6.0 g/dL (6.4-8.2) L 08/25/19 04:58 Albumin 2.0 g/dL (3.4-5.0) L 08/25/19 04:58 Globulin 4.0 g/dL (2.5-4.5) 08/25/19 04:58 Albumin/Globulin Ratio 0.5 Ratio (1.1-2.1) L 08/25/19 04:58 Total PSA 11.42 ng/mL (0.13-4.0) H 08/22/19 17:56 Specimen Type Catherized urine 08/24/19 15:28 Urine Color [place] (YELLOW) 08/24/19 15:28 Urine Appearance Clear (CLEAR) 08/24/19 15:28 Urine pH 5.0 (5.0 - 8.0) 08/24/19 15:28 Ur Specific [place] 1.015 (1.000-1.030) 08/24/19 15:28 Urine Protein 2+ (NEGATIVE) 08/24/19 15:28 Urine Glucose (UA) 3+ (NEGATIVE) 08/24/19 15:28 Urine Ketones Negative (NEGATIVE) 08/24/19 15:28 Urine Occult Blood 3+ (NEGATIVE) 08/24/19 15:28 Urine Nitrite Negative (NEGATIVE) 08/24/19 15:28 Urine Bilirubin Negative (NEGATIVE) 08/24/19 15:28 Urine Urobilinogen Normal (NORMAL) 08/24/19 15:28 Ur Leukocyte Esterase Negative (NEGATIVE) 08/24/19 15:28 Urine RBC 3-5 /HPF (0-3) A 08/24/19 15:28 Urine WBC None seen /HPF (0-5) 08/24/19 15:28 Ur Squamous Epith Cells Negative /HPF (NEGATIVE) 08/24/19 15:28 Amorphous Sediment 2+ /HPF (NEGATIVE) 08/24/19 15:28 Urine Bacteria Trace /HPF (NEGATIVE) 08/24/19 15:28 Urine Mucus Few /HPF (NEGATIVE) 08/24/19 15:28 Ur Culture Indicated? No/not indicated 08/24/19 15:28 Stool Description 40g brn, unformed 08/22/19 09:42 Stool Description 40g brn,unformed 08/22/19 09:42 Stl Occult Blood (IFOB) Positive (NEGATIVE) A 08/22/19 09:42 Stool for White Cells Positive (NEGATIVE) A 08/22/19 09:42 Stl C. diff Tox B Gene Negative (NEGATIVE) 08/22/19 09:42 Stl C. diff 027-NAP1-BI Negative (NEGATIVE) 08/22/19 09:42 Phenytoin 8.3 ug/mL (10-20) L 08/20/19 13:58 Phenobarbital 23.9 ug/mL (15-40) 08/20/19 13:58 Acetone, Semi-Quant Negative (NEGATIVE) 08/20/19 11:45 Cryptosporid parvum Ag Negative (NEGATIVE) 08/22/19 09:42 Giardia lamblia Ag Negative (NEGATIVE) 08/22/19 09:42 Influenza Type A (PCR) Negative (NEGATIVE) 08/20/19 10:52 Influenza Type B (PCR) Negative (NEGATIVE) 08/20/19 10:52 S. pyogenes (TEM-PCR) Not detected (NOT DETECT) 08/20/19 10:52 - Plan (1) Atrial fibrillation Status: Acute Plan: ICU, SERIAL CE AND EKG OBTAINED. AMIODARONE DRIP, PO ELIQUIS. RATE CONTROL, BP MONITORING (2) Right lower lobe pneumonia Status: Acute Plan: PNEUMONIA PROTOCOL. IV ATBX, RESP THERAPY, SUPPLEMENTAL O2. GENTLE IV HYDRATION. REPEAT AM LABS, BLOOD URINE AND SPUTUM CULTURES ON ADMISSION. FEVER CONTROL, BS CONTROL SSI. ABG ON ADMISSION, CT ABD/PELVIS IN ER (3) Diarrheal stools Status: Acute Plan: STOOL STUDIES OBTAINED (4) Diabetes Status: Acute (5) Anemia Status: Acute (6) GERD (gastroesophageal reflux disease) Status: Acute (7) BPH with elevated PSA Status: Acute
[2019-08-25] MEDS: LOPRESSOR TAB 25 MG PO SCH ×2 (15:08→20:40)
[2019-08-25] MEDS: NYSTATIN SUSP PO SCH (20:41)
[2019-08-25] MEDS: SNACK - Diabetic Appropriate PO SCH (21:03)
--- NOTE | 2019-08-26 00:03 | RAD ---
Chest AP portableIndication: PneumoniaCOMPARISONJanuary 2019FINDINGSThere is no pneumothorax or effusion. Monitor leads obscure minimal detail. Heart size is normal. Patchy right lower lung opacity shows mild improvement compared to the prior.IMPRESSIONImproving right lower lung pneumonia.Electronically signed by: JESS NIELSEN (Aug 26, 2019 00:02:10)
[2019-08-26] MEDS: DUONEB 0.5 MG/3 MG (3 mL) NEB SCH ×4 (00:50→17:33)
[2019-08-26] MEDS: PHENOBARBITAL TAB 30 MG (32.4MG) PO SCH ×3 (05:20→21:37)
[2019-08-26] MEDS: DILANTIN CAP 100 MG EXT REL PO SCH ×3 (05:20→21:37)
[2019-08-26] MEDS: PATIENT'S HOME MEDICATION PO SCH ×3 (05:21→21:37)
[2019-08-26] MEDS: ZOSYN VIAL 3.375 GRAMS 3.375 G in NS 100 ML IV + SPIKE MINIBAG* 100 ML IV SCH ×3 (05:21→21:38)
[2019-08-26] MEDS: NS 1000 ML 1,000 ML IV SCH ×2 (05:21→15:29)
[2019-08-26] MEDS: HumuLIN R SUBCUT PRN ×4 (05:35→20:56)
[2019-08-26 06:13] LABS: BASOPHILS % (AUTO) 0.3 % (0.2-1.0); EOSINOPHILS # (AUTO) 0.1 x10^3/uL (0.0-0.2); EOSINOPHILS % (AUTO) 2.9 % (0.9-2.9); HEMOGLOBIN 9.9 g/dL (13.5-18.0); LYMPHOCYTES # (AUTO) 0.5 X10^3/uL (1.3-2.9); LYMPHOCYTES % (AUTO) 11.2 % (21.0-51.0); MEAN CORPUSCULAR VOLUME 97.1 fL (80.0-100.0); MEAN PLATELET VOLUME 8.5 fL (7.4-11.0); MONOCYTES # (AUTO) 0.5 x10^3/uL (0.3-0.8); MONOCYTES % (AUTO) 10.1 % (0.0-13.0); NEUTROPHILS # (AUTO) 3.6 x10^3/uL (2.2-4.8); NEUTROPHILS % (AUTO) 75.5 % (42.0-75.0); PLATELET COUNT 239 X10^3/uL (150.0-450.0); RED BLOOD COUNT 2.99 X10^6/uL (4.7-6.0); WHITE BLOOD COUNT 4.8 X10^3/uL (3.6-10.0)
[2019-08-26 06:28] LABS: ALBUMIN 1.9 g/dL (3.4-5.0); CALCIUM 7.6 mg/dL (8.5-10.1); CARBON DIOXIDE 26.4 mmol/L (21-32); COR CA(FOR HYPOALB) 9.3 mg/dL (8.5-10.1); CREATININE 1.48 mg/dL (0.70-1.30)
[2019-08-26] MEDS ORDERED: LASIX IVP ONE (08:50)
[2019-08-26] MEDS: LOPRESSOR TAB 25 MG PO SCH ×2 (09:16→20:57)
[2019-08-26] MEDS: ELIQUIS PO SCH ×2 (09:16→20:55)
[2019-08-26] MEDS: MILK OF MAGNESIA PO SCH ×2 (09:16→20:21)
[2019-08-26] MEDS: ROBITUSSIN DM PO SCH ×4 (09:17→20:57)
[2019-08-26] MEDS: PROTONIX INJ 40 MG VIAL IVP SCH (09:17)
[2019-08-26] MEDS: NEURONTIN CAP 300 MG PO SCH ×2 (09:17→20:57)
[2019-08-26] MEDS: NYSTATIN SUSP PO SCH ×4 (09:17→20:57)
[2019-08-26] MEDS: CORDARONE TAB 200 MG PO SCH (18:33)
[2019-08-26] MEDS: SNACK - Diabetic Appropriate PO SCH (20:21)
[2019-08-27] MEDS: NS 1000 ML 1,000 ML IV SCH ×3 (00:05→21:50)
[2019-08-27] MEDS: DUONEB 0.5 MG/3 MG (3 mL) NEB SCH ×4 (01:06→17:25)
[2019-08-27] MEDS: HumuLIN R SUBCUT PRN ×3 (06:09→16:55)
[2019-08-27] MEDS: DILANTIN CAP 100 MG EXT REL PO SCH ×3 (06:09→22:04)
[2019-08-27] MEDS: PATIENT'S HOME MEDICATION PO SCH ×3 (06:10→22:04)
[2019-08-27] MEDS: PHENOBARBITAL TAB 30 MG (32.4MG) PO SCH ×3 (06:10→22:04)
[2019-08-27] MEDS: ZOSYN VIAL 3.375 GRAMS 3.375 G in NS 100 ML IV + SPIKE MINIBAG* 100 ML IV SCH ×3 (06:10→22:05)
[2019-08-27 06:21] LABS: ALANINE AMINOTRANSFERASE 25 Units/L (12-78); ALKALINE PHOSPHATASE 84 Units/L (46-116); ASPARTATE AMINO TRANSFERASE 28 Units/L (15-37); BASOPHILS % (AUTO) 0.4 % (0.2-1.0); BLOOD UREA NITROGEN 14 mg/dL (7-18); CALCIUM 7.9 mg/dL (8.5-10.1); CARBON DIOXIDE 29.8 mmol/L (21-32); CHLORIDE 106 mmol/L (98-107); COR CA(FOR HYPOALB) 9.5 mg/dL (8.5-10.1); COR NA(FOR HYPERGLY) 142 mmol/L (136-145); CREATININE 1.31 mg/dL (0.70-1.30); EOSINOPHILS # (AUTO) 0.1 x10^3/uL (0.0-0.2); EOSINOPHILS % (AUTO) 3.3 % (0.9-2.9); HEMATOCRIT 31.2 % (42.0-54.0); HEMOGLOBIN 10.5 g/dL (13.5-18.0); LYMPHOCYTES # (AUTO) 0.6 X10^3/uL (1.3-2.9); LYMPHOCYTES % (AUTO) 14.5 % (21.0-51.0); MEAN CORPUSCULAR HEMOGLOBIN 32.6 pg (27.0-34.0); MEAN CORPUSCULAR HGB CONC 33.7 g/dL (33.0-35.0); MEAN CORPUSCULAR VOLUME 96.7 fL (80.0-100.0); MEAN PLATELET VOLUME 8.2 fL (7.4-11.0); MONOCYTES # (AUTO) 0.4 x10^3/uL (0.3-0.8); MONOCYTES % (AUTO) 9.7 % (0.0-13.0); NEUTROPHILS # (AUTO) 3.1 x10^3/uL (2.2-4.8); NEUTROPHILS % (AUTO) 72.1 % (42.0-75.0); PLATELET COUNT 276 X10^3/uL (150.0-450.0); RED BLOOD COUNT 3.23 X10^6/uL (4.7-6.0); SODIUM 141 mmol/L (136-145); TOTAL PROTEIN 6.4 g/dL (6.4-8.2); WHITE BLOOD COUNT 4.3 X10^3/uL (3.6-10.0); eGFR NON BLACK RACES 56 (>60)
[2019-08-27 08:28] LABS: CHOL/HDL RATIO 3.8 (0.0-5.0)
[2019-08-27] MEDS: NYSTATIN SUSP PO SCH ×4 (08:28→20:29)
[2019-08-27] MEDS: NEURONTIN CAP 300 MG PO SCH ×2 (08:28→20:29)
[2019-08-27] MEDS: LOPRESSOR TAB 25 MG PO SCH ×2 (08:28→20:28)
[2019-08-27] MEDS: CORDARONE TAB 200 MG PO SCH (08:30)
[2019-08-27] MEDS: ROBITUSSIN DM PO SCH ×4 (08:30→20:30)
[2019-08-27] MEDS: PROTONIX INJ 40 MG VIAL IVP SCH (08:30)
[2019-08-27] MEDS: ELIQUIS PO SCH ×2 (08:30→20:28)
[2019-08-27] MEDS: MILK OF MAGNESIA PO SCH ×2 (08:31→20:29)
--- NOTE | 2019-08-27 09:25 | RAD ---
HISTORYShortness of breath, pneumoniaSTUDYCHEST, 1 [id number]/2020FINDINGSThe heart is within normal limits in size. The bigg are normal. Right basilar lung infiltrate appears slightly increased when compared to the prior examination. The remainder of the lung parish are clear. No pleural effusions are identified.IMPRESSIONSlight increase right basilar lung infiltrateElectronically signed by: ANTONIO HUNTER (Aug 27, 2019 09:23:56)
[2019-08-27] MEDS: DIFLUCAN 200 MG IV PREMIX* 200 MG/100 ML BAG IV SCH (10:14)
[2019-08-27] MEDS ORDERED: LASIX ONE (13:55)
[2019-08-27] MEDS ORDERED: LASIX IVP SCH (14:00)
[2019-08-27] MEDS ORDERED: LOMOTIL PO PRN (17:13)
[2019-08-27] MEDS: SNACK - Diabetic Appropriate PO SCH (20:28)
[2019-08-28] MEDS: DUONEB 0.5 MG/3 MG (3 mL) NEB SCH ×3 (00:15→12:36)
[2019-08-28] MEDS: DILANTIN CAP 100 MG EXT REL PO SCH (06:21)
[2019-08-28] MEDS: PATIENT'S HOME MEDICATION PO SCH (06:22)
[2019-08-28] MEDS: ZOSYN VIAL 3.375 GRAMS 3.375 G in NS 100 ML IV + SPIKE MINIBAG* 100 ML IV SCH (06:22)
[2019-08-28] MEDS: PHENOBARBITAL TAB 30 MG (32.4MG) PO SCH (06:22)
[2019-08-28] MEDS: HumuLIN R SUBCUT PRN ×2 (06:34→11:11)
[2019-08-28 06:57] LABS: BASOPHILS % (AUTO) 0.5 % (0.2-1.0); EOSINOPHILS # (AUTO) 0.1 x10^3/uL (0.0-0.2); EOSINOPHILS % (AUTO) 2.4 % (0.9-2.9); HEMOGLOBIN 10.8 g/dL (13.5-18.0); LYMPHOCYTES # (AUTO) 0.6 X10^3/uL (1.3-2.9); LYMPHOCYTES % (AUTO) 13.8 % (21.0-51.0); MEAN CORPUSCULAR HGB CONC 33.7 g/dL (33.0-35.0); MEAN CORPUSCULAR VOLUME 94.8 fL (80.0-100.0); MEAN PLATELET VOLUME 7.5 fL (7.4-11.0); MONOCYTES # (AUTO) 0.3 x10^3/uL (0.3-0.8); MONOCYTES % (AUTO) 8.3 % (0.0-13.0); PLATELET COUNT 320 X10^3/uL (150.0-450.0); RED BLOOD COUNT 3.37 X10^6/uL (4.7-6.0); RED CELL DISTRIBUTION WIDTH 12.7 % (11.6-16.5)
[2019-08-28 07:07] LABS: ALANINE AMINOTRANSFERASE 29 Units/L (12-78); ALBUMIN 2.2 g/dL (3.4-5.0); ALKALINE PHOSPHATASE 98 Units/L (46-116); ASPARTATE AMINO TRANSFERASE 32 Units/L (15-37); BLOOD UREA NITROGEN 11 mg/dL (7-18); CARBON DIOXIDE 28.3 mmol/L (21-32); CHLORIDE 102 mmol/L (98-107); COR CA(FOR HYPOALB) 9.4 mg/dL (8.5-10.1); COR NA(FOR HYPERGLY) 142 mmol/L (136-145); CREATININE 1.34 mg/dL (0.70-1.30); SODIUM 139 mmol/L (136-145); TOTAL PROTEIN 6.8 g/dL (6.4-8.2); eGFR NON BLACK RACES 55 (>60)
[2019-08-28] MEDS: CORDARONE TAB 200 MG PO SCH (08:45)
[2019-08-28] MEDS: ELIQUIS PO SCH (08:47)
[2019-08-28] MEDS: DIFLUCAN 200 MG IV PREMIX* 200 MG/100 ML BAG IV SCH (08:47)
[2019-08-28] MEDS: LOPRESSOR TAB 25 MG PO SCH (08:47)
[2019-08-28] MEDS: NEURONTIN CAP 300 MG PO SCH (08:48)
[2019-08-28] MEDS: NYSTATIN SUSP PO SCH (08:48)
[2019-08-28] MEDS: ROBITUSSIN DM PO SCH (08:49)
[2019-08-28] MEDS: PROTONIX INJ 40 MG VIAL IVP SCH (08:49)
--- NOTE | 2019-08-28 08:49 | RAD ---
HISTORYSOB, PNEUMONIA, AFIBSTUDYCHEST, 1 VIEW, done portably.[id number]/07/2020FINDINGSThe trachea is midline. The cardiac silhouette is unremarkable. There is further improvement in aeration in the small focus of infiltrate in the right lung base. A small amount does remain. Remainder of lung parish are clear. Trachea is midline. There is cardiomegaly with aortic uncoiling. Osseous structures displayed no acute abnormality..IMPRESSIONFurther interval improvement in aeration in the right lung base. A small amount of infiltrate remains.Electronically signed by: GUADALUPE WILLETT (Aug 28, 2019 08:48:41)
[2019-08-28] MEDS ORDERED: FLOMAX PO SCH (09:00)
[2019-08-28] MEDS: NS 1000 ML 1,000 ML IV SCH (10:41)
[2019-08-28] MEDS: MILK OF MAGNESIA PO SCH (10:41)
[2019-08-28 12:24] VITALS: BP 160/85
== END 2019-08-28 14:00 | disposition home health service (06) | DRG 194 ==
LOC: ER 10:31 → MED/SURG 13:30 → ICU 08-23 13:36
PROVIDERS: ADMIT Internal Medicine; ATTEND Internal Medicine
DX: E87.6 Hypokalemia; R26.89 Other abnormalities of gait and mobility; D64.89 Other specified anemias; E86.0 Dehydration; N40.1 Benign prostatic hyperplasia with lower urinary tract symptoms; E11.65 Type 2 diabetes mellitus with hyperglycemia; K21.9 Gastro-esophageal reflux disease without esophagitis; N39.0 Urinary tract infection, site not specified; R53.1 Weakness; N17.9 Acute kidney failure, unspecified; I48.91 Unspecified atrial fibrillation; R06.02 Shortness of breath; R97.20 Elevated prostate specific antigen [PSA]; J18.8 Other pneumonia, unspecified organism; K52.9 Noninfective gastroenteritis and colitis, unspecified
CPT/HCPCS: 36415; 36600; 71010; 71020; 71045; 71046; 71250; 74176; 80053; 80061; 80184; 80185; 81001; 82009; 82270; 82550; 82553; 82803; 83605; 83630; 84153; 84484; 85014; 85018; 85025; 87040; 87070; 87086; 87205; 87328; 87329; 87493; 87502; 87651; 93005; 93306; 94640; 94669; 94760; 96372; 97162; A4222; C9113; J0282; J0456; J0696; J1450; J1650; J1815; J1940; J1956; J2543; J3230; J3490; J7030; J7050; J7620